=== PATIENT | male | born 1985 | race Caucasian/White ===

== ENCOUNTER 2019-05-22 18:04 | Inpatient (IN) ==
[2019-05-22] MEDS ORDERED: 0.9 % Sodium Chloride 1,000 ML IVC ONE (18:18)
[2019-05-22 18:51] LABS: Basophils # 0.1 K/mcL (0.0-0.2); Basophils % 0.7 %; Eosinophils # 0.2 K/mcL (0.0-0.6); Eosinophils % 2.8 %; Hematocrit 41.9 % (37.5-50.1); Hemoglobin 12.9 g/dL (12.9-16.9); Immature Granulocytes % 0.6 % (0-4); Lymphocytes # 1.4 K/mcL (0.6-4.6); Lymphocytes % 20.9 %; Mean Corpuscular HGB Conc 30.8 g/dL (31.6-35.5); Mean Corpuscular Hemoglobin 29.3 pg (28.0-33.3); Mean Platelet Volume 10.7 fL (9.4-12.4); Monocytes # 0.4 K/mcL (0.0-1.3); Monocytes % 5.7 %; Neutrophils # 4.7 K/mcL (1.6-8.9); Platelet Count 251 K/mcL (140-400); Red Blood Count 4.41 M/mcL (4.19-5.50); Red Cell Distribution Width 14.7 % (11.5-14.5); Segmented Neutrophils % 69.3 %; White Blood Count 6.8 K/mcL (4.3-11.1)
[2019-05-22 18:57] LABS: INR 1.1; Prothrombin Time 12.6 Seconds (9.4-12.1)
[2019-05-22 18:59] LABS: Activated Partial Thrombo Time 37.8 Seconds (26.0-36.0)
[2019-05-22 19:09] LABS: Alanine Aminotransferase 10 Units/L (7-52); Albumin 3.7 g/dL (3.5-5.7); Albumin/Globulin Ratio 0.9 (1.1-2.2); Alkaline Phosphatase 72 Units/L (34-104); Aspartate Amino Transferase 15 Units/L (13-39); BUN/Creatinine Ratio 51 (6-26); Bilirubin,Direct 0.1 mg/dL (0.0-0.2); Bilirubin,Indirect 0.2 mg/dL (0.0-1.0); Bilirubin,Total 0.3 mg/dL (0.3-1.0); Blood Urea Nitrogen 20 mg/dL (6-20); Calcium 9.6 mg/dL (8.6-10.3); Carbon Dioxide 34 mEq/L (23-29); Chloride 98 mEq/L (98-107); Globulin 4.2 g/dL (2.4-3.5); Glucose 95 mg/dL (70-105); Magnesium 2.1 mg/dL (1.6-2.6); Osmolality,Calculated 288 (280-300); Phosphorous 3.7 mg/dL (2.7-4.5); Sodium 138 mEq/L (136-145); Total Protein 7.9 g/dL (6.4-8.9); eGFR For African Americans > 60 (> 60); eGFR For Non-African Americans > 60 (> 60)
[2019-05-22 19:31] LABS: Bilirubin,Urine Negative (Negative); Blood,Urine Negative (Negative); Clarity,Urine Turbid (Clear); Color,Urine Yellow (Yellow); Glucose,Urine (UA) Normal (Normal); Ketones,Urine Negative (Negative); Leukocyte Esterase,Urine Large (Negative); Nitrite,Urine Negative (Negative); PH,Urine 7.5 pH Units (5.0-8.0); Protein,Urine Trace mg/dL (Neg-Trace); Specific Gravity,Urine 1.023 (1.010-1.025); Urobilinogen,Urine Normal (Normal)
[2019-05-22 19:33] LABS: Bacteria,Urine Many per hpf (None-Few); Squamous Epithelial Cell,Urine Many per lpf (None-Few); WBC,Urine TNTC per hpf (0-3)
[2019-05-22 19:50] LABS: Hyaline Casts,Urine Few per lpf (None-Few); Mucus,Urine Few (Few); RBC,Urine 0-3 per hpf (0-3)
[2019-05-22] MEDS ORDERED: Naloxone 0.4 MG/ML INJ IVP PRN (21:08)
[2019-05-22] MEDS ORDERED: Lactobacillus 1 EACH CAP.SPRINK PO PRN (22:13)
[2019-05-22] MEDS ORDERED: Acetaminophen 325 MG TABLET PO PRN (22:13)
[2019-05-22] MEDS: *HR* Heparin 5,000 UNIT/ML VIAL SQ SCH (23:43)
[2019-05-22] MEDS: Baclofen 10 MG TABLET PO SCH (23:43)
[2019-05-22] MEDS: Cholecalciferol (D-3) 1,000 UNIT (25MCG) TABLET PO SCH (23:43)
[2019-05-22] MEDS: Albuterol 2.5 MG/3 ML NEBULIZER IH SCH (23:53)
[2019-05-23] MEDS: Albuterol 2.5 MG/3 ML NEBULIZER IH SCH ×3 (03:40→19:37)
[2019-05-23 05:14] LABS: Hematocrit 40.4 % (37.5-50.1); Hemoglobin 12.3 g/dL (12.9-16.9); Mean Corpuscular HGB Conc 30.4 g/dL (31.6-35.5); Mean Corpuscular Hemoglobin 29.1 pg (28.0-33.3); Mean Corpuscular Volume 95.5 fL (83.0-100.0); Mean Platelet Volume 11.1 fL (9.4-12.4); Platelet Count 223 K/mcL (140-400); Red Blood Count 4.23 M/mcL (4.19-5.50); Red Cell Distribution Width 14.8 % (11.5-14.5)
[2019-05-23 05:20] LABS: INR 1.2; Prothrombin Time 13.2 Seconds (9.4-12.1)
[2019-05-23 05:35] LABS: BUN/Creatinine Ratio 41 (6-26); Blood Urea Nitrogen 19 mg/dL (6-20); Carbon Dioxide 31 mEq/L (23-29); Chloride 100 mEq/L (98-107); Glucose 92 mg/dL (70-105); Osmolality,Calculated 290 (280-300); Potassium 3.6 mEq/L (3.5-5.1); Sodium 139 mEq/L (136-145); eGFR For African Americans > 60 (> 60); eGFR For Non-African Americans > 60 (> 60)
[2019-05-23] MEDS: *HR* Heparin 5,000 UNIT/ML VIAL SQ SCH ×3 (06:09→23:09)
[2019-05-23] MEDS ORDERED: Melatonin 3 MG TABLET PO SCH (09:00)
[2019-05-23] MEDS ORDERED: ZINC SULFATE 220 MG PO SCH (09:00)
[2019-05-23] MEDS ORDERED: Melatonin 3 MG TABLET PO PRN (21:00)
[2019-05-23] MEDS: Baclofen 10 MG TABLET PO SCH ×2 (22:58→23:09)
[2019-05-23] MEDS: Furosemide 20 MG TABLET PO SCH (22:58)
[2019-05-23] MEDS: Prenatal Vit/FA 1 EACH TABLET PO SCH (22:59)
[2019-05-23] MEDS: diazePAM 10 MG TABLET PO SCH ×2 (22:59→23:09)
[2019-05-23] MEDS: Cholecalciferol (D-3) 1,000 UNIT (25MCG) TABLET PO SCH (23:00)
[2019-05-23] MEDS: Ascorbic Acid 500 MG TABLET PO SCH ×2 (23:00→23:08)
[2019-05-23] MEDS: BuPROPion XL (24 HR) 150 MG TABLET PO SCH (23:00)
[2019-05-24] MEDS: Albuterol 2.5 MG/3 ML NEBULIZER IH SCH ×8 (00:11→23:29)
[2019-05-24] MEDS: *HR* Heparin 5,000 UNIT/ML VIAL SQ SCH ×3 (06:06→20:40)
[2019-05-24 06:24] LABS: Hematocrit 41.1 % (37.5-50.1); Hemoglobin 13.2 g/dL (12.9-16.9); Mean Corpuscular HGB Conc 32.1 g/dL (31.6-35.5); Mean Corpuscular Hemoglobin 29.5 pg (28.0-33.3); Mean Corpuscular Volume 91.7 fL (83.0-100.0); Mean Platelet Volume 11.1 fL (9.4-12.4); Platelet Count 238 K/mcL (140-400); Red Blood Count 4.48 M/mcL (4.19-5.50); Red Cell Distribution Width 15.1 % (11.5-14.5); White Blood Count 8.7 K/mcL (4.3-11.1)
[2019-05-24] MEDS: diazePAM 10 MG TABLET PO SCH ×2 (10:15→20:40)
[2019-05-24] MEDS: Furosemide 20 MG TABLET PO SCH (10:15)
[2019-05-24] MEDS: BuPROPion XL (24 HR) 150 MG TABLET PO SCH (10:16)
[2019-05-24] MEDS: Ascorbic Acid 500 MG TABLET PO SCH ×2 (10:16→20:40)
[2019-05-24] MEDS: Prenatal Vit/FA 1 EACH TABLET PO SCH (10:16)
[2019-05-24] MEDS: Cholecalciferol (D-3) 1,000 UNIT (25MCG) TABLET PO SCH (10:16)
[2019-05-24] MEDS: Baclofen 10 MG TABLET PO SCH ×4 (10:16→20:41)
[2019-05-24] MEDS ORDERED: Ondansetron 4 MG/2 ML VIAL IVP ONE (15:30)
[2019-05-25] MEDS: Albuterol 2.5 MG/3 ML NEBULIZER IH SCH ×5 (03:48→19:45)
[2019-05-25] MEDS: *HR* Heparin 5,000 UNIT/ML VIAL SQ SCH ×3 (06:58→21:52)
[2019-05-25] MEDS: diazePAM 10 MG TABLET PO SCH ×2 (08:54→21:53)
[2019-05-25 08:59] LABS: Hematocrit 41.8 % (37.5-50.1); Hemoglobin 13.8 g/dL (12.9-16.9); Mean Corpuscular Hemoglobin 29.7 pg (28.0-33.3); Mean Corpuscular Volume 90.1 fL (83.0-100.0); Mean Platelet Volume 11.4 fL (9.4-12.4); Platelet Count 235 K/mcL (140-400); Red Blood Count 4.64 M/mcL (4.19-5.50); White Blood Count 7.6 K/mcL (4.3-11.1)
[2019-05-25] MEDS: Prenatal Vit/FA 1 EACH TABLET PO SCH (09:06)
[2019-05-25] MEDS: Baclofen 10 MG TABLET PO SCH ×4 (09:06→21:51)
[2019-05-25] MEDS: Furosemide 20 MG TABLET PO SCH (09:06)
[2019-05-25] MEDS: Ascorbic Acid 500 MG TABLET PO SCH ×2 (09:06→21:52)
[2019-05-25] MEDS: Cholecalciferol (D-3) 1,000 UNIT (25MCG) TABLET PO SCH (09:06)
[2019-05-25] MEDS: BuPROPion XL (24 HR) 150 MG TABLET PO SCH (09:06)
[2019-05-25] MEDS ORDERED: Gadolinium Contrast Agent (WT Based) IV PRN (12:35)
[2019-05-25] MEDS ORDERED: *HR* Propofol 200 MG/20 ML VIAL IVP ONE (14:13)
[2019-05-25] MEDS ORDERED: *HR* FentaNYL (PF) 100 MCG/2 ML VIAL ONE (14:13)
[2019-05-25] MEDS ORDERED: *HR* Midazolam HCl 2 MG/2 ML VIAL ONE (14:13)
[2019-05-25] MEDS ORDERED: Ondansetron 4 MG/2 ML VIAL IVP ONE (14:21)
[2019-05-25] MEDS ORDERED: *HR* Labetalol 20 MG/4 ML SYRINGE IVP PRN (14:21)
[2019-05-25] MEDS ORDERED: Morphine Sulfate 2 MG/ML SYRINGE IVP PRN (14:21)
[2019-05-25] MEDS ORDERED: CefOXitin 1,000 MG VIAL ONE (14:26)
[2019-05-25] MEDS ORDERED: Piperacillin/Tazobactam 3.375 GM in 0.9 % Sodium Chloride Mini Bag 100 ML IVPB ONE (14:27)
[2019-05-25] MEDS ORDERED: *HR* Rocuronium Bromide 50 MG/5 ML VIAL ONE ×2 (14:36→15:56)
[2019-05-25] MEDS ORDERED: Lidocaine -MPF 4% 5 ML AMPUL ONE (15:48)
[2019-05-25] MEDS ORDERED: *HR* HYDROMORPHONE 2 MG/ML VIAL ONE (15:48)
[2019-05-25] MEDS ORDERED: Ondansetron 4 MG/2 ML VIAL ONE (15:55)
[2019-05-25] MEDS ORDERED: Acetaminophen IV 1,000 MG/100 ML INFUS..BTL ONE (16:10)
[2019-05-25] MEDS ORDERED: Naloxone 0.4 MG/ML INJ IVP PRN (17:58)
[2019-05-25] MEDS ORDERED: Melatonin 3 MG TABLET PO PRN (17:58)
[2019-05-25] MEDS ORDERED: Acetaminophen 325 MG TABLET PO PRN (17:58)
[2019-05-25] MEDS ORDERED: *HR* OxyCODONE Oral Soln 5 MG/5 ML UD.LIQ GTUBE PRN (17:58)
[2019-05-26] MEDS: Albuterol 2.5 MG/3 ML NEBULIZER IH SCH ×7 (00:10→23:47)
[2019-05-26] MEDS: *HR* Heparin 5,000 UNIT/ML VIAL SQ SCH ×3 (05:57→20:53)
[2019-05-26 06:40] LABS: Hematocrit 44.1 % (37.5-50.1); Mean Corpuscular HGB Conc 31.7 g/dL (31.6-35.5); Mean Corpuscular Volume 91.5 fL (83.0-100.0); Mean Platelet Volume 11.6 fL (9.4-12.4); Platelet Count 222 K/mcL (140-400); Red Blood Count 4.82 M/mcL (4.19-5.50); Red Cell Distribution Width 15.4 % (11.5-14.5); White Blood Count 9.5 K/mcL (4.3-11.1)
[2019-05-26 07:44] LABS: BUN/Creatinine Ratio 21 (6-26); Blood Urea Nitrogen 10 mg/dL (6-20); Calcium 8.8 mg/dL (8.6-10.3); Carbon Dioxide 28 mEq/L (23-29); Chloride 98 mEq/L (98-107); Glucose 97 mg/dL (70-105); Osmolality,Calculated 281 (280-300); Potassium 3.8 mEq/L (3.5-5.1); Sodium 136 mEq/L (136-145); eGFR For African Americans > 60 (> 60); eGFR For Non-African Americans > 60 (> 60)
[2019-05-26] MEDS ORDERED: 0.9 % Sodium Chloride 1,000 ML IVC ONE (07:46)
[2019-05-26] MEDS: Furosemide 20 MG TABLET PO SCH (08:27)
[2019-05-26] MEDS: BuPROPion XL (24 HR) 150 MG TABLET PO SCH (08:27)
[2019-05-26] MEDS: Baclofen 10 MG TABLET PO SCH ×4 (08:27→20:53)
[2019-05-26] MEDS: Prenatal Vit/FA 1 EACH TABLET PO SCH (08:27)
[2019-05-26] MEDS: Ascorbic Acid 500 MG TABLET PO SCH ×2 (08:28→20:53)
[2019-05-26] MEDS: Lactobacillus 1 EACH CAP.SPRINK PO SCH (08:28)
[2019-05-26] MEDS: Cholecalciferol (D-3) 1,000 UNIT (25MCG) TABLET PO SCH (08:28)
[2019-05-26] MEDS: diazePAM 10 MG TABLET PO SCH ×2 (08:29→20:53)
[2019-05-26] MEDS ORDERED: Ondansetron 4 MG/2 ML VIAL IVP PRN (12:00)
[2019-05-27] MEDS: Albuterol 2.5 MG/3 ML NEBULIZER IH SCH ×5 (03:56→20:20)
[2019-05-27 05:10] LABS: Hematocrit 41.1 % (37.5-50.1); Hemoglobin 13.1 g/dL (12.9-16.9); Mean Corpuscular HGB Conc 31.9 g/dL (31.6-35.5); Mean Corpuscular Hemoglobin 29.2 pg (28.0-33.3); Mean Corpuscular Volume 91.5 fL (83.0-100.0); Mean Platelet Volume 11.9 fL (9.4-12.4); Platelet Count 205 K/mcL (140-400); Red Blood Count 4.49 M/mcL (4.19-5.50); Red Cell Distribution Width 15.1 % (11.5-14.5); White Blood Count 6.9 K/mcL (4.3-11.1)
[2019-05-27 05:26] LABS: BUN/Creatinine Ratio 17 (6-26); Blood Urea Nitrogen 7 mg/dL (6-20); Calcium 8.9 mg/dL (8.6-10.3); Carbon Dioxide 26 mEq/L (23-29); Chloride 95 mEq/L (98-107); Glucose 83 mg/dL (70-105); Osmolality,Calculated 277 (280-300); Potassium 3.4 mEq/L (3.5-5.1); Sodium 135 mEq/L (136-145); eGFR For African Americans > 60 (> 60); eGFR For Non-African Americans > 60 (> 60)
[2019-05-27] MEDS: *HR* Heparin 5,000 UNIT/ML VIAL SQ SCH ×3 (05:44→21:43)
[2019-05-27] MEDS: Prenatal Vit/FA 1 EACH TABLET PO SCH (10:05)
[2019-05-27] MEDS: Cholecalciferol (D-3) 1,000 UNIT (25MCG) TABLET PO SCH (10:05)
[2019-05-27] MEDS: Baclofen 10 MG TABLET PO SCH ×4 (10:05→21:43)
[2019-05-27] MEDS: Lactobacillus 1 EACH CAP.SPRINK PO SCH (10:06)
[2019-05-27] MEDS: Furosemide 20 MG TABLET PO SCH (10:06)
[2019-05-27] MEDS: Ascorbic Acid 500 MG TABLET PO SCH ×2 (10:06→21:42)
[2019-05-27] MEDS: diazePAM 10 MG TABLET PO SCH ×2 (10:06→21:42)
[2019-05-27] MEDS: BuPROPion XL (24 HR) 150 MG TABLET PO SCH (10:06)
[2019-05-28] MEDS: Albuterol 2.5 MG/3 ML NEBULIZER IH SCH ×7 (00:45→20:17)
[2019-05-28 03:56] LABS: Hematocrit 40.2 % (37.5-50.1); Hemoglobin 12.1 g/dL (12.9-16.9); Mean Corpuscular HGB Conc 30.1 g/dL (31.6-35.5); Mean Corpuscular Hemoglobin 28.6 pg (28.0-33.3); Mean Platelet Volume 11.1 fL (9.4-12.4); Platelet Count 176 K/mcL (140-400); Red Blood Count 4.23 M/mcL (4.19-5.50); Red Cell Distribution Width 14.9 % (11.5-14.5); White Blood Count 4.9 K/mcL (4.3-11.1)
[2019-05-28 04:14] LABS: BUN/Creatinine Ratio 12 (6-26); Blood Urea Nitrogen 5 mg/dL (6-20); Calcium 8.8 mg/dL (8.6-10.3); Carbon Dioxide 28 mEq/L (23-29); Chloride 97 mEq/L (98-107); Glucose 82 mg/dL (70-105); Osmolality,Calculated 276 (280-300); Potassium 3.6 mEq/L (3.5-5.1); Sodium 135 mEq/L (136-145); eGFR For African Americans > 60 (> 60); eGFR For Non-African Americans > 60 (> 60)
[2019-05-28] MEDS: *HR* Heparin 5,000 UNIT/ML VIAL SQ SCH ×3 (05:35→21:04)
[2019-05-28] MEDS: diazePAM 10 MG TABLET PO SCH ×2 (09:59→21:04)
[2019-05-28] MEDS: Baclofen 10 MG TABLET PO SCH ×4 (09:59→21:03)
[2019-05-28] MEDS: Cholecalciferol (D-3) 1,000 UNIT (25MCG) TABLET PO SCH (09:59)
[2019-05-28] MEDS: Ascorbic Acid 500 MG TABLET PO SCH ×2 (09:59→21:04)
[2019-05-28] MEDS: BuPROPion XL (24 HR) 150 MG TABLET PO SCH (09:59)
[2019-05-28] MEDS: Prenatal Vit/FA 1 EACH TABLET PO SCH (10:00)
[2019-05-28] MEDS: Lactobacillus 1 EACH CAP.SPRINK PO SCH (10:00)
[2019-05-28] MEDS: Furosemide 20 MG TABLET PO SCH (10:00)
[2019-05-28] MEDS ORDERED: Lidocaine -MPF 1% 5 ML AMPUL INFILT ONE (10:35)
[2019-05-28] MEDS: Cefepime HCl 2,000 MG in Water for inj. (sterile) 20 ML IVP SCH (12:41)
[2019-05-28] MEDS ORDERED: Heparin 1,000 UNITS/500 mL 500 ML ONE (13:30)
[2019-05-28] MEDS ORDERED: *HR* FentaNYL (PF) 100 MCG/2 ML VIAL IVP ONE (14:26)
[2019-05-28] MEDS ORDERED: *HR* FentaNYL (PF) 100 MCG/2 ML VIAL ONE (14:29)
[2019-05-28] MEDS: metroNIDAZOLE 500 MG TABLET PO SCH ×2 (15:29→21:02)
[2019-05-29] MEDS: Albuterol 2.5 MG/3 ML NEBULIZER IH SCH ×5 (00:03→16:31)
[2019-05-29] MEDS: Cefepime HCl 2,000 MG in Water for inj. (sterile) 20 ML IVP SCH ×2 (00:32→11:48)
[2019-05-29 04:15] LABS: BUN/Creatinine Ratio 20 (6-26); Blood Urea Nitrogen 7 mg/dL (6-20); Calcium 8.2 mg/dL (8.6-10.3); Carbon Dioxide 29 mEq/L (23-29); Chloride 100 mEq/L (98-107); Glucose 93 mg/dL (70-105); Osmolality,Calculated 284 (280-300); Potassium 3.2 mEq/L (3.5-5.1); Sodium 138 mEq/L (136-145); eGFR For African Americans > 60 (> 60); eGFR For Non-African Americans > 60 (> 60)
[2019-05-29] MEDS: *HR* Heparin 5,000 UNIT/ML VIAL SQ SCH ×2 (05:53→14:03)
[2019-05-29] MEDS: Baclofen 10 MG TABLET PO SCH ×2 (09:48→14:02)
[2019-05-29] MEDS: Lactobacillus 1 EACH CAP.SPRINK PO SCH (09:49)
[2019-05-29] MEDS: Furosemide 20 MG TABLET PO SCH (09:49)
[2019-05-29] MEDS: metroNIDAZOLE 500 MG TABLET PO SCH ×2 (09:49→15:31)
[2019-05-29] MEDS: Cholecalciferol (D-3) 1,000 UNIT (25MCG) TABLET PO SCH (09:49)
[2019-05-29] MEDS: BuPROPion XL (24 HR) 150 MG TABLET PO SCH (09:50)
[2019-05-29] MEDS: Ascorbic Acid 500 MG TABLET PO SCH (09:50)
[2019-05-29] MEDS: Prenatal Vit/FA 1 EACH TABLET PO SCH (09:51)
[2019-05-29] MEDS: diazePAM 10 MG TABLET PO SCH (09:51)
[2019-05-29 12:22] VITALS: BP 96/60
[2019-05-29] MEDS ORDERED: Aminoglycoside Consult 1 EACH MC ONE (16:46)
== END 2019-05-29 16:47 | DRG 981 ==
LOC: 3NENU 18:04 → EMEROOARM 18:04 → SUATTDRO 20:55 → 3NENU 21:20 → 2NENU 23:23 → SUATTDRO 05-24 12:47 → MERGE 05-24 12:47
PROVIDERS: ADMIT Internal Medicine; ATTEND Internal Medicine

== ENCOUNTER 2019-06-04 13:59 | Inpatient (IN) ==
[2019-06-04] MEDS ORDERED: Ondansetron ODT 4 MG TAB.RAPDIS SL PRN (17:14)
[2019-06-04] MEDS ORDERED: Naloxone 0.4 MG/ML INJ IVP PRN (17:14)
[2019-06-04] MEDS ORDERED: Ondansetron 4 MG/2 ML VIAL IVP PRN (17:14)
[2019-06-04] MEDS ORDERED: *HR* OxyCODONE Immed Rel 5 MG TABLET PO PRN (17:56)
[2019-06-04] MEDS ORDERED: Isovue-370 500 ML BOTTLE IVP ONE (17:57)
[2019-06-04 17:59] LABS: Basophils # 0.1 K/mcL (0.0-0.2); Basophils % 0.6 %; Eosinophils # 0.1 K/mcL (0.0-0.6); Eosinophils % 1.1 %; Hematocrit 34.6 % (37.5-50.1); Hemoglobin 10.8 g/dL (12.9-16.9); Immature Granulocytes % 0.4 % (0-4); Lymphocytes # 1.2 K/mcL (0.6-4.6); Lymphocytes % 15.2 %; Mean Corpuscular HGB Conc 31.2 g/dL (31.6-35.5); Mean Corpuscular Hemoglobin 29.5 pg (28.0-33.3); Mean Corpuscular Volume 94.5 fL (83.0-100.0); Mean Platelet Volume 11.3 fL (9.4-12.4); Monocytes # 0.7 K/mcL (0.0-1.3); Monocytes % 8.2 %; Neutrophils # 6.1 K/mcL (1.6-8.9); Platelet Count 238 K/mcL (140-400); Red Blood Count 3.66 M/mcL (4.19-5.50); Segmented Neutrophils % 74.5 %; White Blood Count 8.2 K/mcL (4.3-11.1)
[2019-06-04] MEDS ORDERED: Furosemide 40 MG/4 ML VIAL IVP ONE (17:59)
[2019-06-04] MEDS ORDERED: Furosemide 20 MG/2 ML VIAL IVP ONE ×2 (17:59→18:52)
[2019-06-04] MEDS ORDERED: Ipratropium/Albuterol Neb 3 ML IH PRN (17:59)
[2019-06-04 18:09] LABS: INR 1.7; Prothrombin Time 18.8 Seconds (9.4-12.1)
[2019-06-04 18:22] LABS: Alanine Aminotransferase 8 Units/L (7-52); Albumin 2.9 g/dL (3.5-5.7); Albumin/Globulin Ratio 0.8 (1.1-2.2); Alkaline Phosphatase 88 Units/L (34-104); Aspartate Amino Transferase 10 Units/L (13-39); BUN/Creatinine Ratio 35 (6-26); Bilirubin,Total 0.3 mg/dL (0.3-1.0); Blood Urea Nitrogen 11 mg/dL (6-20); Calcium 8.1 mg/dL (8.6-10.3); Carbon Dioxide 28 mEq/L (23-29); Chloride 106 mEq/L (98-107); Globulin 3.7 g/dL (2.4-3.5); Glucose 87 mg/dL (70-105); Osmolality,Calculated 293 (280-300); Potassium 3.5 mEq/L (3.5-5.1); Sodium 142 mEq/L (136-145); Total Protein 6.6 g/dL (6.4-8.9); eGFR For African Americans > 60 (> 60); eGFR For Non-African Americans > 60 (> 60)
[2019-06-04] MEDS ORDERED: Docusate Oral Soln 100 MG/10 ML UDC GTUBE SCH (21:00)
[2019-06-04] MEDS ORDERED: Vancomycin 1 EACH in 0.9 % Sodium Chloride 250 ML IVPB SCH (21:45)
[2019-06-04] MEDS: Docusate Oral Soln 100 MG/10 ML UDC GTUBE SCH (21:58)
[2019-06-04] MEDS: Melatonin 3 MG TABLET GTUBE SCH (21:59)
[2019-06-04] MEDS: Baclofen 10 MG TABLET GTUBE SCH (21:59)
[2019-06-04] MEDS: diazePAM 10 MG TABLET PO SCH (22:01)
[2019-06-04] MEDS: Metoclopramide 10 MG/10 ML UD.LIQ GTUBE SCH (22:04)
[2019-06-04] MEDS: *HR* Heparin 5,000 UNIT/ML VIAL SQ SCH (22:04)
[2019-06-05] MEDS: Cefepime HCl 2,000 MG in Water for inj. (sterile) 20 ML IVP SCH ×2 (00:50→09:55)
[2019-06-05 04:59] LABS: Hematocrit 33.1 % (37.5-50.1); Hemoglobin 9.8 g/dL (12.9-16.9); Mean Corpuscular HGB Conc 29.6 g/dL (31.6-35.5); Mean Corpuscular Hemoglobin 29.3 pg (28.0-33.3); Mean Corpuscular Volume 99.1 fL (83.0-100.0); Mean Platelet Volume 10.8 fL (9.4-12.4); Platelet Count 202 K/mcL (140-400); Red Blood Count 3.34 M/mcL (4.19-5.50); Red Cell Distribution Width 16.1 % (11.5-14.5); White Blood Count 7.9 K/mcL (4.3-11.1)
[2019-06-05 05:20] LABS: BUN/Creatinine Ratio 33 (6-26); Blood Urea Nitrogen 9 mg/dL (6-20); Calcium 8.4 mg/dL (8.6-10.3); Carbon Dioxide 28 mEq/L (23-29); Chloride 104 mEq/L (98-107); Glucose 84 mg/dL (70-105); Magnesium 1.8 mg/dL (1.6-2.6); Osmolality,Calculated 290 (280-300); Potassium 3.4 mEq/L (3.5-5.1); Sodium 141 mEq/L (136-145); eGFR For African Americans > 60 (> 60); eGFR For Non-African Americans > 60 (> 60)
[2019-06-05] MEDS: *HR* Heparin 5,000 UNIT/ML VIAL SQ SCH ×2 (05:36→17:51)
[2019-06-05] MEDS ORDERED: DIMETHICONE TP SCH (09:00)
[2019-06-05] MEDS ORDERED: [UNRECOGNIZED DRUG - OTHER] TP SCH (09:00)
[2019-06-05] MEDS ORDERED: ZINC OXIDE TP SCH (09:00)
[2019-06-05] MEDS: diazePAM 10 MG TABLET PO SCH ×3 (09:55→21:13)
[2019-06-05] MEDS: Docusate Oral Soln 100 MG/10 ML UDC GTUBE SCH ×2 (09:55→21:15)
[2019-06-05] MEDS: Baclofen 10 MG TABLET GTUBE SCH ×4 (09:55→21:13)
[2019-06-05] MEDS: BuPROPion XL (24 HR) 150 MG TABLET PO SCH (09:55)
[2019-06-05] MEDS: Ferrous Sulfate Oral Soln 300 MG/5 ML UDC GTUBE SCH (09:55)
[2019-06-05] MEDS: Metoclopramide 10 MG/10 ML UD.LIQ GTUBE SCH ×4 (09:59→21:14)
[2019-06-05] MEDS ORDERED: E-Z-PAQUE (BARIUM SULF) SUSP 1 BOTTLE PO ONE (12:53)
[2019-06-05] MEDS ORDERED: E-Z-HD (BARIUM SULF) SUSPENSION PO ONE (12:53)
[2019-06-05] MEDS: levoFLOXacin 750 MG/150 ML 750 MG/150 ML BAG IVPB SCH (13:45)
[2019-06-05] MEDS ORDERED: MetroNIDAZOLE 500 MG/100 ML 500 MG/100 ML BAG IVPB SCH (16:00)
[2019-06-05] MEDS: Piperacillin/Tazobactam 3.375 GM in 0.9 % Sodium Chloride Mini Bag 100 ML IVPB SCH (16:15)
[2019-06-05] MEDS: Melatonin 3 MG TABLET GTUBE SCH (21:13)
[2019-06-06] MEDS: Piperacillin/Tazobactam 3.375 GM in 0.9 % Sodium Chloride Mini Bag 100 ML IVPB SCH ×3 (01:22→16:48)
[2019-06-06] MEDS: *HR* Heparin 5,000 UNIT/ML VIAL SQ SCH ×2 (05:57→18:38)
[2019-06-06] MEDS: levoFLOXacin 750 MG/150 ML 750 MG/150 ML BAG IVPB SCH (09:45)
[2019-06-06] MEDS: Metoclopramide 10 MG/10 ML UD.LIQ GTUBE SCH ×4 (09:45→21:27)
[2019-06-06] MEDS: Ferrous Sulfate Oral Soln 300 MG/5 ML UDC GTUBE SCH (09:46)
[2019-06-06] MEDS: BuPROPion XL (24 HR) 150 MG TABLET PO SCH (09:47)
[2019-06-06] MEDS: Docusate Oral Soln 100 MG/10 ML UDC GTUBE SCH ×2 (09:47→21:27)
[2019-06-06] MEDS: Baclofen 10 MG TABLET GTUBE SCH ×4 (09:47→21:28)
[2019-06-06] MEDS: diazePAM 10 MG TABLET PO SCH ×3 (09:47→21:29)
[2019-06-06 11:24] LABS: BUN/Creatinine Ratio 21 (6-26); Blood Urea Nitrogen 6 mg/dL (6-20); Calcium 8.4 mg/dL (8.6-10.3); Carbon Dioxide 33 mEq/L (23-29); Chloride 100 mEq/L (98-107); Glucose 88 mg/dL (70-105); Osmolality,Calculated 285 (280-300); Potassium 3.5 mEq/L (3.5-5.1); Sodium 139 mEq/L (136-145); Vancomycin,Trough 11 mcg/mL (5-10); eGFR For African Americans > 60 (> 60); eGFR For Non-African Americans > 60 (> 60)
[2019-06-06 11:28] LABS: Hematocrit 32.1 % (37.5-50.1); Mean Corpuscular HGB Conc 31.2 g/dL (31.6-35.5); Mean Corpuscular Hemoglobin 29.4 pg (28.0-33.3); Mean Corpuscular Volume 94.4 fL (83.0-100.0); Mean Platelet Volume 10.5 fL (9.4-12.4); Platelet Count 216 K/mcL (140-400); Red Cell Distribution Width 15.7 % (11.5-14.5); White Blood Count 6.7 K/mcL (4.3-11.1)
[2019-06-06] MEDS ORDERED: Furosemide 20 MG/2 ML VIAL IVP ONE (13:45)
[2019-06-06] MEDS: Melatonin 3 MG TABLET GTUBE SCH (21:29)
[2019-06-07] MEDS: Piperacillin/Tazobactam 3.375 GM in 0.9 % Sodium Chloride Mini Bag 100 ML IVPB SCH ×3 (00:17→15:24)
[2019-06-07] MEDS: *HR* Heparin 5,000 UNIT/ML VIAL SQ SCH ×2 (05:03→18:05)
[2019-06-07 05:24] LABS: Hematocrit 35.1 % (37.5-50.1); Hemoglobin 10.5 g/dL (12.9-16.9); Mean Corpuscular HGB Conc 29.9 g/dL (31.6-35.5); Mean Corpuscular Hemoglobin 29.4 pg (28.0-33.3); Mean Corpuscular Volume 98.3 fL (83.0-100.0); Mean Platelet Volume 10.8 fL (9.4-12.4); Platelet Count 226 K/mcL (140-400); Red Blood Count 3.57 M/mcL (4.19-5.50); Red Cell Distribution Width 15.6 % (11.5-14.5); White Blood Count 6.5 K/mcL (4.3-11.1)
[2019-06-07 05:49] LABS: BUN/Creatinine Ratio 13 (6-26); Blood Urea Nitrogen 7 mg/dL (6-20); Calcium 9.2 mg/dL (8.6-10.3); Carbon Dioxide 33 mEq/L (23-29); Chloride 97 mEq/L (98-107); Glucose 150 mg/dL (70-105); Osmolality,Calculated 287 (280-300); Potassium 3.1 mEq/L (3.5-5.1); Sodium 138 mEq/L (136-145); eGFR For African Americans > 60 (> 60); eGFR For Non-African Americans > 60 (> 60)
[2019-06-07] MEDS: Docusate Oral Soln 100 MG/10 ML UDC GTUBE SCH ×2 (09:38→21:58)
[2019-06-07] MEDS: Metoclopramide 10 MG/10 ML UD.LIQ GTUBE SCH ×4 (09:38→21:58)
[2019-06-07] MEDS: Ferrous Sulfate Oral Soln 300 MG/5 ML UDC GTUBE SCH (09:39)
[2019-06-07] MEDS: BuPROPion XL (24 HR) 150 MG TABLET PO SCH (09:39)
[2019-06-07] MEDS: Baclofen 10 MG TABLET GTUBE SCH ×4 (09:39→21:58)
[2019-06-07] MEDS: diazePAM 10 MG TABLET PO SCH ×3 (09:40→21:58)
[2019-06-07] MEDS: levoFLOXacin 750 MG/150 ML 750 MG/150 ML BAG IVPB SCH (09:41)
[2019-06-07] MEDS: Melatonin 3 MG TABLET GTUBE SCH (21:58)
[2019-06-08] MEDS: Levalbuterol Neb 1.25 MG/3 ML IH SCH ×5 (01:30→22:24)
[2019-06-08] MEDS: Piperacillin/Tazobactam 3.375 GM in 0.9 % Sodium Chloride Mini Bag 100 ML IVPB SCH ×3 (02:11→16:55)
[2019-06-08 04:51] LABS: Basophils % 0.5 %; Eosinophils # 0.3 K/mcL (0.0-0.6); Eosinophils % 4.3 %; Hematocrit 32.4 % (37.5-50.1); Hemoglobin 9.6 g/dL (12.9-16.9); Immature Granulocytes % 2.2 % (0-4); Lymphocytes # 1.1 K/mcL (0.6-4.6); Lymphocytes % 18.6 %; Mean Corpuscular HGB Conc 29.6 g/dL (31.6-35.5); Mean Corpuscular Hemoglobin 29.5 pg (28.0-33.3); Mean Corpuscular Volume 99.7 fL (83.0-100.0); Monocytes # 0.4 K/mcL (0.0-1.3); Monocytes % 7.5 %; Neutrophils # 3.9 K/mcL (1.6-8.9); Platelet Count 247 K/mcL (140-400); Red Blood Count 3.25 M/mcL (4.19-5.50); Red Cell Distribution Width 15.6 % (11.5-14.5); Segmented Neutrophils % 66.9 %; White Blood Count 5.9 K/mcL (4.3-11.1)
[2019-06-08 05:05] LABS: BUN/Creatinine Ratio 22 (6-26); Blood Urea Nitrogen 18 mg/dL (6-20); Carbon Dioxide 34 mEq/L (23-29); Chloride 99 mEq/L (98-107); Glucose 143 mg/dL (70-105); Osmolality,Calculated 290 (280-300); Potassium 3.7 mEq/L (3.5-5.1); Sodium 138 mEq/L (136-145); eGFR For African Americans > 60 (> 60); eGFR For Non-African Americans > 60 (> 60)
[2019-06-08] MEDS: *HR* Heparin 5,000 UNIT/ML VIAL SQ SCH ×2 (05:12→16:56)
[2019-06-08] MEDS: diazePAM 10 MG TABLET PO SCH ×3 (09:21→21:56)
[2019-06-08] MEDS: Ferrous Sulfate Oral Soln 300 MG/5 ML UDC GTUBE SCH (09:22)
[2019-06-08] MEDS: Baclofen 10 MG TABLET GTUBE SCH ×3 (09:22→16:55)
[2019-06-08] MEDS: Docusate Oral Soln 100 MG/10 ML UDC GTUBE SCH ×2 (09:22→21:54)
[2019-06-08] MEDS: Metoclopramide 10 MG/10 ML UD.LIQ GTUBE SCH ×4 (09:22→21:54)
[2019-06-08] MEDS: BuPROPion XL (24 HR) 150 MG TABLET PO SCH (09:23)
[2019-06-08] MEDS: levoFLOXacin 750 MG/150 ML 750 MG/150 ML BAG IVPB SCH (11:21)
[2019-06-08 16:11] LABS: Sodium, Urine 82.4 mEq/L
[2019-06-08] MEDS: Melatonin 3 MG TABLET GTUBE SCH (21:56)
[2019-06-09] MEDS: Baclofen 10 MG TABLET GTUBE SCH ×5 (00:07→22:00)
[2019-06-09] MEDS: Piperacillin/Tazobactam 3.375 GM in 0.9 % Sodium Chloride Mini Bag 100 ML IVPB SCH ×3 (00:38→16:50)
[2019-06-09] MEDS: *HR* Heparin 5,000 UNIT/ML VIAL SQ SCH ×2 (03:01→17:01)
[2019-06-09] MEDS: Levalbuterol Neb 1.25 MG/3 ML IH SCH ×4 (03:55→22:25)
[2019-06-09 04:04] LABS: Basophils % 0.7 %; Eosinophils # 0.2 K/mcL (0.0-0.6); Eosinophils % 3.9 %; Hematocrit 32.8 % (37.5-50.1); Hemoglobin 9.7 g/dL (12.9-16.9); Immature Granulocytes % 2.7 % (0-4); Lymphocytes # 1.2 K/mcL (0.6-4.6); Lymphocytes % 19.9 %; Mean Corpuscular HGB Conc 29.6 g/dL (31.6-35.5); Mean Corpuscular Volume 98.2 fL (83.0-100.0); Mean Platelet Volume 11.2 fL (9.4-12.4); Monocytes # 0.5 K/mcL (0.0-1.3); Monocytes % 8.8 %; Neutrophils # 3.8 K/mcL (1.6-8.9); Platelet Count 272 K/mcL (140-400); Red Blood Count 3.34 M/mcL (4.19-5.50); White Blood Count 5.9 K/mcL (4.3-11.1)
[2019-06-09 04:22] LABS: BUN/Creatinine Ratio 20 (6-26); Blood Urea Nitrogen 16 mg/dL (6-20); Calcium 8.8 mg/dL (8.6-10.3); Carbon Dioxide 32 mEq/L (23-29); Chloride 100 mEq/L (98-107); Glucose 129 mg/dL (70-105); Osmolality,Calculated 293 (280-300); Potassium 3.6 mEq/L (3.5-5.1); Sodium 140 mEq/L (136-145); eGFR For African Americans > 60 (> 60); eGFR For Non-African Americans > 60 (> 60)
[2019-06-09] MEDS: Vancomycin 500 MG in 0.9 % Sodium Chloride Mini Bag 100 ML IVPB SCH ×2 (05:02→14:37)
[2019-06-09] MEDS: Metoclopramide 10 MG/10 ML UD.LIQ GTUBE SCH ×4 (08:58→22:00)
[2019-06-09] MEDS: Docusate Oral Soln 100 MG/10 ML UDC GTUBE SCH ×2 (09:09→22:00)
[2019-06-09] MEDS: Ferrous Sulfate Oral Soln 300 MG/5 ML UDC GTUBE SCH (09:10)
[2019-06-09] MEDS: BuPROPion XL (24 HR) 150 MG TABLET PO SCH (09:11)
[2019-06-09] MEDS: diazePAM 10 MG TABLET PO SCH ×3 (09:11→22:00)
[2019-06-09] MEDS: Melatonin 3 MG TABLET GTUBE SCH (22:01)
[2019-06-10] MEDS: Piperacillin/Tazobactam 3.375 GM in 0.9 % Sodium Chloride Mini Bag 100 ML IVPB SCH ×2 (00:50→09:13)
[2019-06-10] MEDS: Vancomycin 500 MG in 0.9 % Sodium Chloride Mini Bag 100 ML IVPB SCH (00:51)
[2019-06-10] MEDS: Levalbuterol Neb 1.25 MG/3 ML IH SCH ×3 (03:50→15:49)
[2019-06-10] MEDS: *HR* Heparin 5,000 UNIT/ML VIAL SQ SCH (05:48)
[2019-06-10 06:44] LABS: BUN/Creatinine Ratio 20 (6-26); Blood Urea Nitrogen 18 mg/dL (6-20); Calcium 8.8 mg/dL (8.6-10.3); Carbon Dioxide 34 mEq/L (23-29); Chloride 100 mEq/L (98-107); Glucose 135 mg/dL (70-105); Osmolality,Calculated 296 (280-300); Potassium 3.9 mEq/L (3.5-5.1); Sodium 141 mEq/L (136-145); eGFR For African Americans > 60 (> 60); eGFR For Non-African Americans > 60 (> 60)
[2019-06-10] MEDS ORDERED: Ascorbic Acid 500 MG TABLET GTUBE SCH (09:00)
[2019-06-10] MEDS ORDERED: BuPROPion XL (24 HR) 150 MG TABLET PO SCH (09:00)
[2019-06-10] MEDS: Metoclopramide 10 MG/10 ML UD.LIQ GTUBE SCH ×2 (09:11→12:51)
[2019-06-10] MEDS: Baclofen 10 MG TABLET GTUBE SCH ×2 (09:12→12:51)
[2019-06-10] MEDS: Ferrous Sulfate Oral Soln 300 MG/5 ML UDC GTUBE SCH (09:12)
[2019-06-10] MEDS: Docusate Oral Soln 100 MG/10 ML UDC GTUBE SCH (09:12)
[2019-06-10] MEDS: diazePAM 10 MG TABLET PO SCH (09:12)
[2019-06-10 11:44] VITALS: BP 120/83
[2019-06-10] MEDS ORDERED: Aminoglycoside Consult 1 EACH MC ONE (16:34)
== END 2019-06-10 16:35 | DRG 871 ==
LOC: 2NNU → MERGE 17:14 → SUATTDRO 17:14
PROVIDERS: ADMIT Student in an Organized Health Care Education/Training Program; ATTEND Internal Medicine

== ENCOUNTER 2019-07-15 14:48 | Inpatient (IN) ==
[2019-07-15] MEDS ORDERED: Ondansetron 4 MG/2 ML VIAL IVP PRN (18:40)
[2019-07-15] MEDS ORDERED: Naloxone 0.4 MG/ML INJ IVP PRN (18:40)
[2019-07-15] MEDS ORDERED: diazePAM 10 MG TABLET PO PRN (18:44)
[2019-07-15] MEDS ORDERED: Ipratropium/Albuterol Neb 3 ML IH PRN (18:44)
[2019-07-15] MEDS ORDERED: Melatonin 3 MG TABLET PO PRN (18:44)
[2019-07-15] MEDS ORDERED: Vancomycin (wt based) 1,000 MG VIAL IVPB SCH (19:00)
[2019-07-15 19:21] LABS: ABG Base Excess 10 mEq/L (-2 to 3); ABG HCO3 38 mEq/L (21-27); ABG Oxygen Saturation 77 % (95-98); ABG PCO2 67 mmHg (35-45); ABG PH 7.36 pH Units (7.32-7.45); ABG PO2 46 mmHg (85-104); ABG TCO2 40 mEq/L (20-26)
[2019-07-15 19:24] LABS: ABG Base Excess 10 mEq/L (-2 to 3); ABG HCO3 38 mEq/L (21-27); ABG Oxygen Saturation 88 % (95-98); ABG PCO2 69 mmHg (35-45); ABG PH 7.35 pH Units (7.32-7.45); ABG PO2 60 mmHg (85-104); ABG TCO2 40 mEq/L (20-26)
[2019-07-15] MEDS ORDERED: Isovue-370 500 ML BOTTLE IVP ONE (19:43)
[2019-07-15] MEDS: metroNIDAZOLE 500 MG TABLET PO SCH (21:56)
[2019-07-15] MEDS: Baclofen 10 MG TABLET PO SCH (21:56)
[2019-07-16] MEDS: Piperacillin/Tazobactam 3.375 GM in 0.9 % Sodium Chloride Mini Bag 100 ML IVPB SCH ×3 (01:19→18:47)
[2019-07-16 05:08] LABS: Hematocrit 31.7 % (37.5-50.1); Hemoglobin 9.4 g/dL (12.9-16.9); Mean Corpuscular HGB Conc 29.7 g/dL (31.6-35.5); Mean Corpuscular Hemoglobin 28.8 pg (28.0-33.3); Mean Corpuscular Volume 97.2 fL (83.0-100.0); Mean Platelet Volume 11.4 fL (9.4-12.4); Platelet Count 280 K/mcL (140-400); Red Blood Count 3.26 M/mcL (4.19-5.50); Red Cell Distribution Width 15.8 % (11.5-14.5); White Blood Count 5.4 K/mcL (4.3-11.1)
[2019-07-16 05:27] LABS: BUN/Creatinine Ratio 33 (6-26); Blood Urea Nitrogen 18 mg/dL (6-20); Calcium 8.9 mg/dL (8.6-10.3); Carbon Dioxide 35 mEq/L (23-29); Chloride 103 mEq/L (98-107); Glucose 109 mg/dL (70-105); Magnesium 2.2 mg/dL (1.6-2.6); Osmolality,Calculated 298 (280-300); Potassium 3.7 mEq/L (3.5-5.1); Sodium 143 mEq/L (136-145); eGFR For African Americans > 60 (> 60); eGFR For Non-African Americans > 60 (> 60)
[2019-07-16] MEDS: metroNIDAZOLE 500 MG TABLET PO SCH ×3 (10:08→22:31)
[2019-07-16] MEDS: Baclofen 10 MG TABLET PO SCH ×4 (10:08→22:28)
[2019-07-16] MEDS ORDERED: Propofol 500 MG/50 ML INFUS..BTL ONE (11:19)
[2019-07-16] MEDS ORDERED: Lidocaine -MPF 2% 2 ML VIAL ONE (11:43)
[2019-07-16] MEDS ORDERED: E-Z-PAQUE (BARIUM SULF) SUSP 1 BOTTLE PO ONE (14:11)
[2019-07-16] MEDS ORDERED: E-Z-HD (BARIUM SULF) SUSPENSION PO ONE (14:11)
[2019-07-16] MEDS: BuPROPion XL (24 HR) 150 MG TABLET PO SCH (15:22)
[2019-07-16] MEDS: *HR* Heparin 5,000 UNIT/ML VIAL SQ SCH (18:48)
[2019-07-17] MEDS: Piperacillin/Tazobactam 3.375 GM in 0.9 % Sodium Chloride Mini Bag 100 ML IVPB SCH ×3 (01:52→16:05)
[2019-07-17] MEDS: *HR* Heparin 5,000 UNIT/ML VIAL SQ SCH ×2 (05:21→16:05)
[2019-07-17] MEDS: Acetaminophen 325 MG TABLET PO PRN (07:19)
[2019-07-17] MEDS: metroNIDAZOLE 500 MG TABLET PO SCH ×3 (07:59→22:08)
[2019-07-17] MEDS: Baclofen 10 MG TABLET PO SCH ×4 (07:59→22:08)
[2019-07-17] MEDS: BuPROPion XL (24 HR) 150 MG TABLET PO SCH (08:00)
[2019-07-17 09:53] LABS: Hematocrit 27.4 % (37.5-50.1); Hemoglobin 8.1 g/dL (12.9-16.9); Mean Corpuscular HGB Conc 29.6 g/dL (31.6-35.5); Mean Corpuscular Hemoglobin 28.8 pg (28.0-33.3); Mean Corpuscular Volume 97.5 fL (83.0-100.0); Mean Platelet Volume 11.1 fL (9.4-12.4); Platelet Count 266 K/mcL (140-400); Red Blood Count 2.81 M/mcL (4.19-5.50); Red Cell Distribution Width 15.4 % (11.5-14.5)
[2019-07-17 10:12] LABS: BUN/Creatinine Ratio 33 (6-26); Blood Urea Nitrogen 16 mg/dL (6-20); Calcium 8.9 mg/dL (8.6-10.3); Carbon Dioxide 35 mEq/L (23-29); Chloride 100 mEq/L (98-107); Glucose 119 mg/dL (70-105); Magnesium 1.8 mg/dL (1.6-2.6); Osmolality,Calculated 300 (280-300); Potassium 3.6 mEq/L (3.5-5.1); Sodium 144 mEq/L (136-145); eGFR For African Americans > 60 (> 60); eGFR For Non-African Americans > 60 (> 60)
[2019-07-18] MEDS: Piperacillin/Tazobactam 3.375 GM in 0.9 % Sodium Chloride Mini Bag 100 ML IVPB SCH ×3 (01:15→16:49)
[2019-07-18] MEDS: *HR* Heparin 5,000 UNIT/ML VIAL SQ SCH ×2 (06:03→16:48)
[2019-07-18] MEDS: BuPROPion XL (24 HR) 150 MG TABLET PO SCH (08:32)
[2019-07-18] MEDS: Baclofen 10 MG TABLET PO SCH ×4 (08:34→20:56)
[2019-07-18] MEDS: metroNIDAZOLE 500 MG TABLET PO SCH (08:34)
[2019-07-18] MEDS ORDERED: Aminoglycoside Consult 1 EACH MC ONE (09:10)
[2019-07-18] MEDS ORDERED: COLISTIN IVPB ONE (11:47)
[2019-07-18] MEDS ORDERED: SODIUM CHLORIDE 0.9% IVPB ONE (11:47)
[2019-07-18] MEDS: Acetaminophen 325 MG TABLET PO PRN (12:25)
[2019-07-19] MEDS: Piperacillin/Tazobactam 3.375 GM in 0.9 % Sodium Chloride Mini Bag 100 ML IVPB SCH ×3 (01:15→16:08)
[2019-07-19] MEDS: SODIUM CHLORIDE 0.9% IVPB SCH ×2 (01:15→11:30)
[2019-07-19] MEDS: COLISTIN IVPB SCH ×2 (01:15→11:30)
[2019-07-19] MEDS: *HR* Heparin 5,000 UNIT/ML VIAL SQ SCH ×2 (06:17→18:10)
[2019-07-19] MEDS: Baclofen 10 MG TABLET PO SCH ×4 (08:28→21:33)
[2019-07-19] MEDS: BuPROPion XL (24 HR) 150 MG TABLET PO SCH (08:29)
[2019-07-19] MEDS ORDERED: 0.9 % Sodium Chloride 250 ML IVC SCH (17:45)
[2019-07-20] MEDS: Piperacillin/Tazobactam 3.375 GM in 0.9 % Sodium Chloride Mini Bag 100 ML IVPB SCH ×3 (00:25→16:56)
[2019-07-20] MEDS: COLISTIN IVPB SCH ×3 (00:26→22:43)
[2019-07-20] MEDS: SODIUM CHLORIDE 0.9% IVPB SCH ×3 (00:26→22:43)
[2019-07-20 06:19] LABS: Hematocrit 30.1 % (37.5-50.1); Hemoglobin 9.3 g/dL (12.9-16.9); Mean Corpuscular HGB Conc 30.9 g/dL (31.6-35.5); Mean Corpuscular Hemoglobin 29.2 pg (28.0-33.3); Mean Corpuscular Volume 94.7 fL (83.0-100.0); Mean Platelet Volume 11.1 fL (9.4-12.4); Platelet Count 281 K/mcL (140-400); Red Blood Count 3.18 M/mcL (4.19-5.50); Red Cell Distribution Width 15.1 % (11.5-14.5); White Blood Count 6.3 K/mcL (4.3-11.1)
[2019-07-20] MEDS: *HR* Heparin 5,000 UNIT/ML VIAL SQ SCH ×2 (06:20→16:59)
[2019-07-20 06:34] LABS: BUN/Creatinine Ratio 28 (6-26); Blood Urea Nitrogen 17 mg/dL (6-20); Calcium 9.3 mg/dL (8.6-10.3); Carbon Dioxide 32 mEq/L (23-29); Chloride 96 mEq/L (98-107); Glucose 127 mg/dL (70-105); Magnesium 1.6 mg/dL (1.6-2.6); Osmolality,Calculated 287 (280-300); Potassium 3.9 mEq/L (3.5-5.1); Sodium 137 mEq/L (136-145); eGFR For African Americans > 60 (> 60); eGFR For Non-African Americans > 60 (> 60)
[2019-07-20] MEDS: BuPROPion XL (24 HR) 150 MG TABLET PO SCH (08:15)
[2019-07-20] MEDS: Baclofen 10 MG TABLET PO SCH ×4 (08:15→20:27)
[2019-07-21] MEDS: Piperacillin/Tazobactam 3.375 GM in 0.9 % Sodium Chloride Mini Bag 100 ML IVPB SCH ×2 (01:12→09:33)
[2019-07-21 02:39] LABS: Hematocrit 31.7 % (37.5-50.1); Hemoglobin 9.8 g/dL (12.9-16.9); Mean Corpuscular HGB Conc 30.9 g/dL (31.6-35.5); Mean Corpuscular Hemoglobin 29.4 pg (28.0-33.3); Mean Corpuscular Volume 95.2 fL (83.0-100.0); Mean Platelet Volume 10.7 fL (9.4-12.4); Platelet Count 296 K/mcL (140-400); Red Blood Count 3.33 M/mcL (4.19-5.50); Red Cell Distribution Width 15.2 % (11.5-14.5); White Blood Count 7.4 K/mcL (4.3-11.1)
[2019-07-21 02:58] LABS: BUN/Creatinine Ratio 28 (6-26); Blood Urea Nitrogen 20 mg/dL (6-20); Calcium 9.2 mg/dL (8.6-10.3); Carbon Dioxide 29 mEq/L (23-29); Chloride 100 mEq/L (98-107); Glucose 120 mg/dL (70-105); Osmolality,Calculated 288 (280-300); Potassium 3.6 mEq/L (3.5-5.1); Sodium 137 mEq/L (136-145); eGFR For African Americans > 60 (> 60); eGFR For Non-African Americans > 60 (> 60)
[2019-07-21] MEDS: *HR* Heparin 5,000 UNIT/ML VIAL SQ SCH ×2 (06:30→16:27)
[2019-07-21] MEDS: Baclofen 10 MG TABLET PO SCH ×4 (09:33→21:33)
[2019-07-21] MEDS: BuPROPion XL (24 HR) 150 MG TABLET PO SCH (09:34)
[2019-07-21] MEDS: 0.9 % Sodium Chloride 1,000 ML IVC SCH ×2 (12:00→22:01)
[2019-07-21] MEDS: COLISTIN IVPB SCH (13:28)
[2019-07-21] MEDS: SODIUM CHLORIDE 0.9% IVPB SCH (13:28)
[2019-07-22] MEDS: SODIUM CHLORIDE 0.9% IVPB SCH ×2 (01:17→11:54)
[2019-07-22] MEDS: COLISTIN IVPB SCH ×2 (01:17→11:54)
[2019-07-22 02:25] LABS: Hematocrit 30.6 % (37.5-50.1); Hemoglobin 9.3 g/dL (12.9-16.9); Mean Corpuscular HGB Conc 30.4 g/dL (31.6-35.5); Mean Corpuscular Hemoglobin 29.2 pg (28.0-33.3); Mean Corpuscular Volume 95.9 fL (83.0-100.0); Mean Platelet Volume 10.9 fL (9.4-12.4); Platelet Count 297 K/mcL (140-400); Red Blood Count 3.19 M/mcL (4.19-5.50); Red Cell Distribution Width 15.5 % (11.5-14.5)
[2019-07-22 02:42] LABS: Blood Urea Nitrogen 16 mg/dL (6-20); Calcium 8.8 mg/dL (8.6-10.3); Carbon Dioxide 25 mEq/L (23-29); Chloride 101 mEq/L (98-107); Glucose 109 mg/dL (70-105); Osmolality,Calculated 294 (280-300); Potassium 3.8 mEq/L (3.5-5.1); Sodium 141 mEq/L (136-145)
[2019-07-22 03:40] LABS: BUN/Creatinine Ratio 20 (6-26); eGFR For African Americans > 60 (> 60); eGFR For Non-African Americans > 60 (> 60)
[2019-07-22] MEDS: *HR* Heparin 5,000 UNIT/ML VIAL SQ SCH ×2 (05:00→16:12)
[2019-07-22] MEDS: Baclofen 10 MG TABLET PO SCH ×4 (07:59→20:46)
[2019-07-22] MEDS: BuPROPion XL (24 HR) 150 MG TABLET PO SCH (07:59)
[2019-07-22 15:34] LABS: ABG Base Excess 2 mEq/L (-2 to 3); ABG HCO3 29 mEq/L (21-27); ABG Oxygen Saturation 96 % (95-98); ABG PCO2 55 mmHg (35-45); ABG PH 7.33 pH Units (7.32-7.45); ABG PO2 87 mmHg (85-104); ABG TCO2 31 mEq/L (20-26)
[2019-07-22] MEDS: 0.9 % Sodium Chloride 1,000 ML IVC SCH (15:46)
[2019-07-22 16:39] LABS: Bilirubin,Urine Negative (Negative); Blood,Urine Negative (Negative); Clarity,Urine Clear (Clear); Color,Urine Yellow (Yellow); Glucose,Urine (UA) Normal (Normal); Ketones,Urine Negative (Negative); Leukocyte Esterase,Urine Negative (Negative); Nitrite,Urine Negative (Negative); PH,Urine 6.5 pH Units (5.0-8.0); Protein,Urine Negative (Neg-Trace); Specific Gravity,Urine 1.005 (1.010-1.025); Urobilinogen,Urine Normal (Normal)
[2019-07-23] MEDS: SODIUM CHLORIDE 0.9% IVPB SCH ×3 (00:34→23:49)
[2019-07-23] MEDS: COLISTIN IVPB SCH ×3 (00:34→23:49)
[2019-07-23] MEDS: 0.9 % Sodium Chloride 1,000 ML IVC SCH ×2 (00:37→13:41)
[2019-07-23] MEDS: *HR* Heparin 5,000 UNIT/ML VIAL SQ SCH ×2 (01:37→17:05)
[2019-07-23 05:22] LABS: Hematocrit 29.1 % (37.5-50.1); Mean Corpuscular HGB Conc 30.9 g/dL (31.6-35.5); Mean Corpuscular Hemoglobin 29.4 pg (28.0-33.3); Mean Corpuscular Volume 95.1 fL (83.0-100.0); Mean Platelet Volume 10.7 fL (9.4-12.4); Platelet Count 265 K/mcL (140-400); Red Blood Count 3.06 M/mcL (4.19-5.50); Red Cell Distribution Width 15.8 % (11.5-14.5); White Blood Count 7.7 K/mcL (4.3-11.1)
[2019-07-23 05:37] LABS: BUN/Creatinine Ratio 28 (6-26); Blood Urea Nitrogen 22 mg/dL (6-20); Calcium 8.9 mg/dL (8.6-10.3); Carbon Dioxide 24 mEq/L (23-29); Chloride 106 mEq/L (98-107); Glucose 93 mg/dL (70-105); Osmolality,Calculated 289 (280-300); Sodium 138 mEq/L (136-145); eGFR For African Americans > 60 (> 60); eGFR For Non-African Americans > 60 (> 60)
[2019-07-23] MEDS ORDERED: *HR* Propofol 200 MG/20 ML VIAL IVP ONE (08:09)
[2019-07-23] MEDS ORDERED: *HR* FentaNYL (PF) 100 MCG/2 ML VIAL ONE (08:09)
[2019-07-23] MEDS ORDERED: Lidocaine -MPF 2% 2 ML VIAL ONE (08:10)
[2019-07-23 08:40] LABS: ABG Base Excess 1 mEq/L (-2 to 3); ABG HCO3 29 mEq/L (21-27); ABG Oxygen Saturation 99 % (95-98); ABG PCO2 64 mmHg (35-45); ABG PH 7.26 pH Units (7.32-7.45); ABG PO2 143 mmHg (85-104); ABG TCO2 31 mEq/L (20-26)
[2019-07-23] MEDS: Baclofen 10 MG TABLET PO SCH ×4 (12:08→20:28)
[2019-07-23] MEDS: MethylPREDNISolone 40 MG/ML VIAL IVP SCH ×2 (13:41→23:49)
[2019-07-23] MEDS: BuPROPion XL (24 HR) 150 MG TABLET PO SCH (14:07)
[2019-07-23] MEDS: MetroNIDAZOLE 500 MG/100 ML 500 MG/100 ML BAG IVPB SCH ×2 (16:19→20:29)
[2019-07-23 17:55] LABS: Appearance of Body Fluid Cloudy (Clear); Volume of Body Fluid 12 mL
[2019-07-23 17:56] LABS: Appearance of Body Fluid Cloudy (Clear); Volume of Body Fluid 19 mL
[2019-07-24] MEDS: 0.9 % Sodium Chloride 1,000 ML IVC SCH ×2 (03:36→11:56)
[2019-07-24 04:28] LABS: ABG Base Excess -2 mEq/L (-2 to 3); ABG HCO3 22 mEq/L (21-27); ABG Oxygen Saturation 99 % (95-98); ABG PCO2 36 mmHg (35-45); ABG PO2 130 mmHg (85-104); ABG TCO2 23 mEq/L (20-26); Blood Gas Modality BiLevel; Blood Gas VT 500 cc
[2019-07-24] MEDS: *HR* Heparin 5,000 UNIT/ML VIAL SQ SCH ×2 (05:18→17:40)
[2019-07-24] MEDS: MetroNIDAZOLE 500 MG/100 ML 500 MG/100 ML BAG IVPB SCH ×3 (05:18→21:34)
[2019-07-24 05:24] LABS: Hematocrit 25.6 % (37.5-50.1); Mean Corpuscular HGB Conc 31.3 g/dL (31.6-35.5); Mean Corpuscular Hemoglobin 29.3 pg (28.0-33.3); Mean Corpuscular Volume 93.8 fL (83.0-100.0); Platelet Count 238 K/mcL (140-400); Red Blood Count 2.73 M/mcL (4.19-5.50); Red Cell Distribution Width 15.9 % (11.5-14.5); White Blood Count 6.2 K/mcL (4.3-11.1)
[2019-07-24 05:37] LABS: BUN/Creatinine Ratio 23 (6-26); Blood Urea Nitrogen 17 mg/dL (6-20); Calcium 8.6 mg/dL (8.6-10.3); Carbon Dioxide 19 mEq/L (23-29); Chloride 107 mEq/L (98-107); Glucose 131 mg/dL (70-105); Osmolality,Calculated 281 (280-300); Sodium 134 mEq/L (136-145); eGFR For African Americans > 60 (> 60); eGFR For Non-African Americans > 60 (> 60)
[2019-07-24] MEDS: Baclofen 10 MG TABLET PO SCH ×4 (07:50→21:33)
[2019-07-24] MEDS: BuPROPion XL (24 HR) 150 MG TABLET PO SCH (07:50)
[2019-07-24] MEDS: COLISTIN IVPB SCH (11:57)
[2019-07-24] MEDS: SODIUM CHLORIDE 0.9% IVPB SCH (11:57)
[2019-07-24] MEDS: MethylPREDNISolone 40 MG/ML VIAL IVP SCH (13:44)
[2019-07-25] MEDS: SODIUM CHLORIDE 0.9% IVPB SCH ×2 (01:08→14:20)
[2019-07-25] MEDS: COLISTIN IVPB SCH ×2 (01:08→14:20)
[2019-07-25] MEDS: MethylPREDNISolone 40 MG/ML VIAL IVP SCH ×2 (01:08→14:15)
[2019-07-25] MEDS: MetroNIDAZOLE 500 MG/100 ML 500 MG/100 ML BAG IVPB SCH ×3 (05:57→20:55)
[2019-07-25] MEDS: *HR* Heparin 5,000 UNIT/ML VIAL SQ SCH ×2 (05:57→17:00)
[2019-07-25 07:26] LABS: Hematocrit 26.4 % (37.5-50.1); Hemoglobin 8.4 g/dL (12.9-16.9); Mean Corpuscular HGB Conc 31.8 g/dL (31.6-35.5); Mean Corpuscular Hemoglobin 30.1 pg (28.0-33.3); Mean Corpuscular Volume 94.6 fL (83.0-100.0); Mean Platelet Volume 10.8 fL (9.4-12.4); Platelet Count 250 K/mcL (140-400); Red Blood Count 2.79 M/mcL (4.19-5.50); Red Cell Distribution Width 16.1 % (11.5-14.5); White Blood Count 5.7 K/mcL (4.3-11.1)
[2019-07-25 07:34] LABS: VBG HCO3 23 mEq/L (21-27); VBG PCO2 43 mmHg (41-51); VBG PH 7.33 pH Units (7.32-7.42); VBG PO2 195 mmHg (25-50)
[2019-07-25 07:41] LABS: BUN/Creatinine Ratio 22 (6-26); Blood Urea Nitrogen 18 mg/dL (6-20); Calcium 8.9 mg/dL (8.6-10.3); Carbon Dioxide 22 mEq/L (23-29); Chloride 105 mEq/L (98-107); Glucose 152 mg/dL (70-105); Osmolality,Calculated 291 (280-300); Sodium 138 mEq/L (136-145); eGFR For African Americans > 60 (> 60); eGFR For Non-African Americans > 60 (> 60)
[2019-07-25] MEDS ORDERED: Aminoglycoside Consult 1 EACH MC ONE (08:00)
[2019-07-25] MEDS: Baclofen 10 MG TABLET PO SCH ×4 (08:23→20:59)
[2019-07-25] MEDS: BuPROPion XL (24 HR) 150 MG TABLET PO SCH (08:23)
[2019-07-25] MEDS: Vancomycin 500 MG in 0.9 % Sodium Chloride Mini Bag 100 ML IVPB SCH ×2 (08:24→21:00)
[2019-07-25] MEDS ORDERED: 0.9 % Sodium Chloride 1,000 ML ONE (21:54)
[2019-07-26] MEDS: SODIUM CHLORIDE 0.9% IVPB SCH ×2 (01:39→08:51)
[2019-07-26] MEDS: COLISTIN IVPB SCH ×2 (01:39→08:51)
[2019-07-26] MEDS: 0.9 % Sodium Chloride 1,000 ML IVC SCH (01:40)
[2019-07-26] MEDS: MethylPREDNISolone 40 MG/ML VIAL IVP SCH ×2 (01:40→11:31)
[2019-07-26] MEDS: MetroNIDAZOLE 500 MG/100 ML 500 MG/100 ML BAG IVPB SCH ×3 (06:15→20:15)
[2019-07-26] MEDS: Baclofen 10 MG TABLET PO SCH ×4 (08:49→20:16)
[2019-07-26] MEDS: BuPROPion XL (24 HR) 150 MG TABLET PO SCH (08:49)
[2019-07-26] MEDS: Vancomycin 500 MG in 0.9 % Sodium Chloride Mini Bag 100 ML IVPB SCH (08:50)
[2019-07-26] MEDS: *HR* Heparin 5,000 UNIT/ML VIAL SQ SCH ×3 (17:33→20:03)
[2019-07-26] MEDS: Acetaminophen 325 MG TABLET PO PRN (20:16)
[2019-07-27] MEDS: SODIUM CHLORIDE 0.9% IVPB SCH ×2 (00:18→14:00)
[2019-07-27] MEDS: COLISTIN IVPB SCH ×2 (00:18→14:00)
[2019-07-27] MEDS: MethylPREDNISolone 40 MG/ML VIAL IVP SCH ×2 (00:19→12:14)
[2019-07-27 05:18] LABS: Hematocrit 31.6 % (37.5-50.1); Hemoglobin 9.9 g/dL (12.9-16.9); Mean Corpuscular HGB Conc 31.3 g/dL (31.6-35.5); Mean Corpuscular Hemoglobin 29.5 pg (28.0-33.3); Mean Platelet Volume 10.3 fL (9.4-12.4); Platelet Count 323 K/mcL (140-400); Red Blood Count 3.36 M/mcL (4.19-5.50); Red Cell Distribution Width 17.1 % (11.5-14.5)
[2019-07-27 05:19] LABS: VBG HCO3 24 mEq/L (21-27); VBG PCO2 44 mmHg (41-51); VBG PH 7.35 pH Units (7.32-7.42); VBG PO2 180 mmHg (25-50)
[2019-07-27 05:22] LABS: White Blood Count 8.9 K/mcL (4.3-11.1)
[2019-07-27] MEDS: *HR* Heparin 5,000 UNIT/ML VIAL SQ SCH ×2 (05:27→17:49)
[2019-07-27] MEDS: MetroNIDAZOLE 500 MG/100 ML 500 MG/100 ML BAG IVPB SCH ×3 (05:27→20:05)
[2019-07-27 06:39] LABS: BUN/Creatinine Ratio 26 (6-26); Blood Urea Nitrogen 22 mg/dL (6-20); Calcium 9.3 mg/dL (8.6-10.3); Carbon Dioxide 20 mEq/L (23-29); Chloride 103 mEq/L (98-107); Glucose 147 mg/dL (70-105); Osmolality,Calculated 288 (280-300); Potassium 4.6 mEq/L (3.5-5.1); Sodium 136 mEq/L (136-145); eGFR For African Americans > 60 (> 60); eGFR For Non-African Americans > 60 (> 60)
[2019-07-27] MEDS: Baclofen 10 MG TABLET PO SCH ×4 (08:39→20:03)
[2019-07-27] MEDS: BuPROPion XL (24 HR) 150 MG TABLET PO SCH (08:39)
[2019-07-27] MEDS: Acetaminophen 325 MG TABLET PO PRN (12:13)
[2019-07-28] MEDS: SODIUM CHLORIDE 0.9% IVPB SCH ×2 (01:53→11:39)
[2019-07-28] MEDS: MethylPREDNISolone 40 MG/ML VIAL IVP SCH ×2 (01:53→13:07)
[2019-07-28] MEDS: COLISTIN IVPB SCH ×2 (01:53→11:39)
[2019-07-28 05:33] LABS: Hematocrit 33.7 % (37.5-50.1); Hemoglobin 10.5 g/dL (12.9-16.9); Mean Corpuscular HGB Conc 31.2 g/dL (31.6-35.5); Mean Corpuscular Hemoglobin 29.8 pg (28.0-33.3); Mean Corpuscular Volume 95.7 fL (83.0-100.0); Mean Platelet Volume 11.5 fL (9.4-12.4); Platelet Count 298 K/mcL (140-400); Red Blood Count 3.52 M/mcL (4.19-5.50); Red Cell Distribution Width 17.5 % (11.5-14.5)
[2019-07-28 05:34] LABS: White Blood Count 15.2 K/mcL (4.3-11.1)
[2019-07-28 05:57] LABS: BUN/Creatinine Ratio 31 (6-26); Blood Urea Nitrogen 29 mg/dL (6-20); Calcium 9.3 mg/dL (8.6-10.3); Carbon Dioxide 22 mEq/L (23-29); Chloride 100 mEq/L (98-107); Glucose 138 mg/dL (70-105); Osmolality,Calculated 284 (280-300); Potassium 4.5 mEq/L (3.5-5.1); Sodium 133 mEq/L (136-145); eGFR For African Americans > 60 (> 60); eGFR For Non-African Americans > 60 (> 60)
[2019-07-28] MEDS: *HR* Heparin 5,000 UNIT/ML VIAL SQ SCH ×2 (06:37→18:19)
[2019-07-28] MEDS: MetroNIDAZOLE 500 MG/100 ML 500 MG/100 ML BAG IVPB SCH ×3 (06:37→20:14)
[2019-07-28] MEDS: BuPROPion XL (24 HR) 150 MG TABLET PO SCH (09:11)
[2019-07-28] MEDS: Baclofen 10 MG TABLET PO SCH ×4 (09:11→20:14)
[2019-07-29] MEDS: MethylPREDNISolone 40 MG/ML VIAL IVP SCH ×2 (00:01→12:15)
[2019-07-29] MEDS: SODIUM CHLORIDE 0.9% IVPB SCH ×2 (00:03→11:26)
[2019-07-29] MEDS: COLISTIN IVPB SCH ×2 (00:03→11:26)
[2019-07-29] MEDS: MetroNIDAZOLE 500 MG/100 ML 500 MG/100 ML BAG IVPB SCH ×2 (05:12→12:15)
[2019-07-29] MEDS: *HR* Heparin 5,000 UNIT/ML VIAL SQ SCH ×2 (05:16→18:18)
[2019-07-29] MEDS: BuPROPion XL (24 HR) 150 MG TABLET PO SCH (08:04)
[2019-07-29] MEDS: Baclofen 10 MG TABLET PO SCH ×4 (08:05→21:02)
[2019-07-29 15:03] LABS: Hematocrit 35.6 % (37.5-50.1); Hemoglobin 10.7 g/dL (12.9-16.9); Mean Corpuscular HGB Conc 30.1 g/dL (31.6-35.5); Mean Corpuscular Hemoglobin 29.7 pg (28.0-33.3); Mean Corpuscular Volume 98.9 fL (83.0-100.0); Mean Platelet Volume 10.8 fL (9.4-12.4); Platelet Count 318 K/mcL (140-400); Red Cell Distribution Width 17.4 % (11.5-14.5); White Blood Count 14.6 K/mcL (4.3-11.1)
[2019-07-29 15:22] LABS: BUN/Creatinine Ratio 41 (6-26); Blood Urea Nitrogen 31 mg/dL (6-20); Calcium 9.1 mg/dL (8.6-10.3); Carbon Dioxide 21 mEq/L (23-29); Chloride 100 mEq/L (98-107); Glucose 141 mg/dL (70-105); Magnesium 1.3 mg/dL (1.6-2.6); Osmolality,Calculated 287 (280-300); Sodium 134 mEq/L (136-145); eGFR For African Americans > 60 (> 60); eGFR For Non-African Americans > 60 (> 60)
[2019-07-30] MEDS: COLISTIN IVPB SCH ×2 (03:37→11:43)
[2019-07-30] MEDS: SODIUM CHLORIDE 0.9% IVPB SCH ×2 (03:37→11:43)
[2019-07-30 04:59] LABS: Hematocrit 34.5 % (37.5-50.1); Hemoglobin 10.9 g/dL (12.9-16.9); Mean Corpuscular HGB Conc 31.6 g/dL (31.6-35.5); Mean Corpuscular Hemoglobin 29.8 pg (28.0-33.3); Mean Corpuscular Volume 94.3 fL (83.0-100.0); Mean Platelet Volume 10.9 fL (9.4-12.4); Platelet Count 333 K/mcL (140-400); Red Blood Count 3.66 M/mcL (4.19-5.50); Red Cell Distribution Width 17.7 % (11.5-14.5); White Blood Count 12.7 K/mcL (4.3-11.1)
[2019-07-30 05:08] LABS: BUN/Creatinine Ratio 41 (6-26); Blood Urea Nitrogen 32 mg/dL (6-20); Calcium 9.2 mg/dL (8.6-10.3); Carbon Dioxide 24 mEq/L (23-29); Chloride 101 mEq/L (98-107); Glucose 102 mg/dL (70-105); Magnesium 1.4 mg/dL (1.6-2.6); Osmolality,Calculated 289 (280-300); Potassium 3.6 mEq/L (3.5-5.1); Sodium 136 mEq/L (136-145); eGFR For African Americans > 60 (> 60); eGFR For Non-African Americans > 60 (> 60)
[2019-07-30] MEDS: *HR* Heparin 5,000 UNIT/ML VIAL SQ SCH ×2 (06:02→17:23)
[2019-07-30] MEDS: Baclofen 10 MG TABLET PO SCH ×3 (08:33→16:04)
[2019-07-30] MEDS: predniSONE 20 MG TABLET PO SCH (08:33)
[2019-07-30] MEDS: BuPROPion XL (24 HR) 150 MG TABLET PO SCH (08:35)
[2019-07-31] MEDS: Baclofen 10 MG TABLET PO SCH ×5 (03:55→20:42)
[2019-07-31] MEDS: COLISTIN IVPB SCH ×2 (05:13→17:19)
[2019-07-31] MEDS: SODIUM CHLORIDE 0.9% IVPB SCH (05:13)
[2019-07-31] MEDS: *HR* Heparin 5,000 UNIT/ML VIAL SQ SCH ×2 (06:00→17:15)
[2019-07-31] MEDS: BuPROPion XL (24 HR) 150 MG TABLET PO SCH (08:17)
[2019-07-31] MEDS: predniSONE 20 MG TABLET PO SCH (08:17)
[2019-07-31] MEDS: WATER IVPB SCH (17:19)
[2019-07-31] MEDS: D5 IVPB SCH (17:19)
[2019-08-01 03:39] LABS: Hematocrit 33.8 % (37.5-50.1); Hemoglobin 10.7 g/dL (12.9-16.9); Mean Corpuscular HGB Conc 31.7 g/dL (31.6-35.5); Mean Corpuscular Hemoglobin 30.3 pg (28.0-33.3); Mean Corpuscular Volume 95.8 fL (83.0-100.0); Mean Platelet Volume 10.4 fL (9.4-12.4); Platelet Count 276 K/mcL (140-400); Red Blood Count 3.53 M/mcL (4.19-5.50); Red Cell Distribution Width 17.7 % (11.5-14.5); White Blood Count 8.9 K/mcL (4.3-11.1)
[2019-08-01 03:58] LABS: BUN/Creatinine Ratio 50 (6-26); Blood Urea Nitrogen 42 mg/dL (6-20); Calcium 9.5 mg/dL (8.6-10.3); Carbon Dioxide 23 mEq/L (23-29); Chloride 99 mEq/L (98-107); Glucose 124 mg/dL (70-105); Osmolality,Calculated 292 (280-300); Potassium 3.3 mEq/L (3.5-5.1); Sodium 135 mEq/L (136-145); eGFR For African Americans > 60 (> 60); eGFR For Non-African Americans > 60 (> 60)
[2019-08-01] MEDS: D5 IVPB SCH (05:48)
[2019-08-01] MEDS: COLISTIN IVPB SCH ×2 (05:48→16:19)
[2019-08-01] MEDS: WATER IVPB SCH (05:48)
[2019-08-01] MEDS: Baclofen 10 MG TABLET PO SCH ×4 (10:36→23:26)
[2019-08-01] MEDS: BuPROPion XL (24 HR) 150 MG TABLET PO SCH (10:36)
[2019-08-01] MEDS: predniSONE 20 MG TABLET PO SCH (10:38)
[2019-08-01] MEDS: SODIUM CHLORIDE 0.9% IVPB SCH (16:19)
[2019-08-02] MEDS: SODIUM CHLORIDE 0.9% IVPB SCH ×2 (04:15→17:14)
[2019-08-02] MEDS: COLISTIN IVPB SCH ×2 (04:15→17:14)
[2019-08-02 06:28] LABS: Alanine Aminotransferase 11 Units/L (7-52); Albumin 3.3 g/dL (3.5-5.7); Albumin/Globulin Ratio 0.8 (1.1-2.2); Alkaline Phosphatase 75 Units/L (34-104); Aspartate Amino Transferase 14 Units/L (13-39); BUN/Creatinine Ratio 80 (6-26); Bilirubin,Total 0.2 mg/dL (0.3-1.0); Blood Urea Nitrogen 52 mg/dL (6-20); Calcium 9.7 mg/dL (8.6-10.3); Carbon Dioxide 26 mEq/L (23-29); Chloride 97 mEq/L (98-107); Globulin 4.2 g/dL (2.4-3.5); Glucose 94 mg/dL (70-105); Osmolality,Calculated 296 (280-300); Potassium 3.4 mEq/L (3.5-5.1); Sodium 136 mEq/L (136-145); Total Protein 7.5 g/dL (6.4-8.9); eGFR For African Americans > 60 (> 60); eGFR For Non-African Americans > 60 (> 60)
[2019-08-02] MEDS: Baclofen 10 MG TABLET PO SCH ×4 (10:27→22:34)
[2019-08-02] MEDS: predniSONE 20 MG TABLET PO SCH (10:29)
[2019-08-02] MEDS: BuPROPion XL (24 HR) 150 MG TABLET PO SCH (10:29)
[2019-08-02] MEDS ORDERED: Isovue-370 500 ML BOTTLE IVP ONE (11:14)
[2019-08-03] MEDS: SODIUM CHLORIDE 0.9% IVPB SCH ×2 (04:23→17:44)
[2019-08-03] MEDS: COLISTIN IVPB SCH ×2 (04:23→17:44)
[2019-08-03 06:53] LABS: Hematocrit 32.9 % (37.5-50.1); Mean Corpuscular HGB Conc 30.4 g/dL (31.6-35.5); Mean Corpuscular Hemoglobin 30.1 pg (28.0-33.3); Mean Corpuscular Volume 99.1 fL (83.0-100.0); Mean Platelet Volume 10.5 fL (9.4-12.4); Platelet Count 235 K/mcL (140-400); Red Blood Count 3.32 M/mcL (4.19-5.50); Red Cell Distribution Width 17.5 % (11.5-14.5); White Blood Count 8.7 K/mcL (4.3-11.1)
[2019-08-03 07:15] LABS: BUN/Creatinine Ratio 58 (6-26); Blood Urea Nitrogen 45 mg/dL (6-20); Calcium 9.3 mg/dL (8.6-10.3); Carbon Dioxide 28 mEq/L (23-29); Chloride 98 mEq/L (98-107); Glucose 127 mg/dL (70-105); Magnesium 1.5 mg/dL (1.6-2.6); Osmolality,Calculated 295 (280-300); Potassium 3.4 mEq/L (3.5-5.1); Sodium 136 mEq/L (136-145); eGFR For African Americans > 60 (> 60); eGFR For Non-African Americans > 60 (> 60)
[2019-08-03] MEDS: predniSONE 20 MG TABLET PO SCH (10:49)
[2019-08-03] MEDS: Baclofen 10 MG TABLET PO SCH ×4 (10:49→23:19)
[2019-08-03] MEDS: BuPROPion XL (24 HR) 150 MG TABLET PO SCH (10:49)
[2019-08-04] MEDS: SODIUM CHLORIDE 0.9% IVPB SCH (04:30)
[2019-08-04] MEDS: COLISTIN IVPB SCH (04:30)
[2019-08-04 07:48] VITALS: BP 104/70
[2019-08-04] MEDS: Baclofen 10 MG TABLET PO SCH ×2 (08:01→11:29)
[2019-08-04] MEDS: BuPROPion XL (24 HR) 150 MG TABLET PO SCH (08:01)
[2019-08-04] MEDS: predniSONE 20 MG TABLET PO SCH (08:02)
== END 2019-08-04 16:42 | DRG 871 ==
LOC: 2NENU → SUATTDRO 18:23 → 2NNU 07-23 15:59 → 2NENU 07-30 21:01
PROVIDERS: ADMIT Internal Medicine; ATTEND Internal Medicine

== ENCOUNTER 2019-08-14 15:51 | Inpatient (IN) ==
[2019-08-14] MEDS ORDERED: Piperacillin/Tazobactam 3.375 GM in 0.9 % Sodium Chloride Mini Bag 100 ML IVPB ONE (15:57)
[2019-08-14] MEDS: 0.9 % Sodium Chloride 1,000 ML IVC SCH ×3 (16:36→22:43)
[2019-08-14 16:46] LABS: Hematocrit 30.3 % (37.5-50.1); Hemoglobin 9.3 g/dL (12.9-16.9); Mean Corpuscular HGB Conc 30.7 g/dL (31.6-35.5); Mean Corpuscular Hemoglobin 29.7 pg (28.0-33.3); Mean Corpuscular Volume 96.8 fL (83.0-100.0); Platelet Count 195 K/mcL (140-400); Red Blood Count 3.13 M/mcL (4.19-5.50); Red Cell Distribution Width 15.9 % (11.5-14.5); White Blood Count 8.2 K/mcL (4.3-11.1)
[2019-08-14 17:16] LABS: Alanine Aminotransferase 13 Units/L (7-52); Albumin 2.9 g/dL (3.5-5.7); Albumin/Globulin Ratio 0.7 (1.1-2.2); Alkaline Phosphatase 113 Units/L (34-104); Aspartate Amino Transferase 14 Units/L (13-39); BUN/Creatinine Ratio 27 (6-26); Bilirubin,Direct 0.2 mg/dL (0.0-0.2); Bilirubin,Indirect 0.2 mg/dL (0.0-1.0); Bilirubin,Total 0.4 mg/dL (0.3-1.0); Blood Urea Nitrogen 21 mg/dL (6-20); Calcium 8.2 mg/dL (8.6-10.3); Carbon Dioxide 24 mEq/L (23-29); Chloride 104 mEq/L (98-107); Globulin 3.9 g/dL (2.4-3.5); Glucose 121 mg/dL (70-105); Osmolality,Calculated 290 (280-300); Potassium 3.8 mEq/L (3.5-5.1); Sodium 138 mEq/L (136-145); Total Protein 6.8 g/dL (6.4-8.9); eGFR For African Americans > 60 (> 60); eGFR For Non-African Americans > 60 (> 60)
[2019-08-14] MEDS ORDERED: Isovue-370 500 ML BOTTLE IVP ONE (18:15)
[2019-08-14 18:41] LABS: Troponin I < 0.03 ng/mL (< 0.04)
[2019-08-14] MEDS ORDERED: 0.9 % Sodium Chloride 250 ML ONE (18:54)
[2019-08-14] MEDS ORDERED: Vancomycin 1,000 MG VIAL ONE (18:54)
[2019-08-14] MEDS ORDERED: Ondansetron 4 MG/2 ML VIAL IVP PRN (20:31)
[2019-08-14] MEDS ORDERED: Naloxone 0.4 MG/ML INJ IVP PRN (20:31)
[2019-08-14 20:46] LABS: ABG Base Excess -2 mEq/L (-2 to 3); ABG HCO3 25 mEq/L (21-27); ABG Oxygen Saturation 98 % (95-98); ABG PCO2 50 mmHg (35-45); ABG PO2 108 mmHg (85-104); ABG TCO2 26 mEq/L (20-26)
[2019-08-14] MEDS ORDERED: Colistin (Colistimethate) 300 MG in 0.9 % Sodium Chloride 50 ML IVPB ONE (21:13)
[2019-08-14] MEDS: Baclofen 10 MG TABLET PO SCH (22:47)
[2019-08-14] MEDS: Melatonin 3 MG TABLET PO SCH (22:47)
[2019-08-14] MEDS: Lactobacillus 1 EACH CAP.SPRINK PO SCH (22:47)
[2019-08-14] MEDS: diazePAM 10 MG TABLET PO SCH (22:48)
[2019-08-14 23:35] LABS: Bilirubin,Urine Negative (Negative); Blood,Urine Negative (Negative); Clarity,Urine Cloudy (Clear); Color,Urine Yellow (Yellow); Glucose,Urine (UA) Normal (Normal); Ketones,Urine Negative (Negative); Leukocyte Esterase,Urine Large (Negative); Nitrite,Urine Negative (Negative); PH,Urine 7.5 pH Units (5.0-8.0); Protein,Urine Trace mg/dL (Neg-Trace); Specific Gravity,Urine 1.017 (1.010-1.025); Urobilinogen,Urine Normal (Normal)
[2019-08-14 23:37] LABS: Bacteria,Urine None Seen per hpf (None-Few); Hyaline Casts,Urine Moderate per lpf (None-Few); RBC,Urine 0-3 per hpf (0-3); Squamous Epithelial Cell,Urine Moderate per lpf (None-Few); WBC,Urine 50-100 per hpf (0-3)
[2019-08-14] MEDS: Ipratropium/Albuterol Neb 3 ML IH SCH (23:38)
[2019-08-14] MEDS: *HR* Heparin 5,000 UNIT/ML VIAL SQ SCH (23:41)
[2019-08-15] MEDS: Ipratropium/Albuterol Neb 3 ML IH SCH ×6 (04:04→23:23)
[2019-08-15] MEDS: *HR* Heparin 5,000 UNIT/ML VIAL SQ SCH ×3 (04:57→23:35)
[2019-08-15] MEDS: 0.9 % Sodium Chloride 1,000 ML IVC SCH (04:59)
[2019-08-15 05:45] LABS: BUN/Creatinine Ratio 21 (6-26); Blood Urea Nitrogen 15 mg/dL (6-20); Calcium 7.7 mg/dL (8.6-10.3); Carbon Dioxide 24 mEq/L (23-29); Chloride 108 mEq/L (98-107); Glucose 91 mg/dL (70-105); Magnesium 1.5 mg/dL (1.6-2.6); Osmolality,Calculated 302 (280-300); Potassium 3.1 mEq/L (3.5-5.1); Sodium 146 mEq/L (136-145); eGFR For African Americans > 60 (> 60); eGFR For Non-African Americans > 60 (> 60)
[2019-08-15 06:20] LABS: Basophils % 0.1 %; Eosinophils # 0.2 K/mcL (0.0-0.6); Eosinophils % 3.3 %; Hematocrit 25.1 % (37.5-50.1); Immature Granulocytes % 0.3 % (0-4); Lymphocytes # 1.1 K/mcL (0.6-4.6); Lymphocytes % 16.9 %; Mean Corpuscular HGB Conc 30.3 g/dL (31.6-35.5); Mean Corpuscular Hemoglobin 30.2 pg (28.0-33.3); Mean Corpuscular Volume 99.6 fL (83.0-100.0); Mean Platelet Volume 11.3 fL (9.4-12.4); Monocytes # 0.4 K/mcL (0.0-1.3); Monocytes % 5.4 %; Neutrophils # 4.9 K/mcL (1.6-8.9); Platelet Count 179 K/mcL (140-400); Red Blood Count 2.52 M/mcL (4.19-5.50); Red Cell Distribution Width 16.1 % (11.5-14.5); White Blood Count 6.7 K/mcL (4.3-11.1)
[2019-08-15 06:22] LABS: Hemoglobin 7.6 g/dL (12.9-16.9)
[2019-08-15] MEDS: BuPROPion XL (24 HR) 150 MG TABLET PO SCH (07:58)
[2019-08-15] MEDS: diazePAM 10 MG TABLET PO SCH ×3 (07:59→21:01)
[2019-08-15] MEDS: Baclofen 10 MG TABLET PO SCH ×4 (07:59→20:59)
[2019-08-15] MEDS: Lactobacillus 1 EACH CAP.SPRINK PO SCH ×2 (07:59→21:01)
[2019-08-15] MEDS: Colistin (Colistimethate) 150 MG in 0.9 % Sodium Chloride 50 ML IVPB SCH ×2 (09:42→21:01)
[2019-08-15] MEDS ORDERED: *HR* Promethazine 25 MG/ML VIAL IVP PRN (16:15)
[2019-08-15] MEDS: Melatonin 3 MG TABLET PO SCH (21:00)
[2019-08-16] MEDS: Ipratropium/Albuterol Neb 3 ML IH SCH ×6 (04:04→23:51)
[2019-08-16] MEDS: *HR* Heparin 5,000 UNIT/ML VIAL SQ SCH (05:29)
[2019-08-16 06:03] LABS: Basophils % 0.4 %; Eosinophils # 0.2 K/mcL (0.0-0.6); Eosinophils % 3.7 %; Hematocrit 22.6 % (37.5-50.1); Hemoglobin 6.8 g/dL (12.9-16.9); Immature Granulocytes % 0.5 % (0-4); Lymphocytes # 0.9 K/mcL (0.6-4.6); Lymphocytes % 15.4 %; Mean Corpuscular HGB Conc 30.1 g/dL (31.6-35.5); Mean Corpuscular Hemoglobin 30.4 pg (28.0-33.3); Mean Corpuscular Volume 100.9 fL (83.0-100.0); Mean Platelet Volume 11.3 fL (9.4-12.4); Monocytes # 0.3 K/mcL (0.0-1.3); Monocytes % 4.7 %; Neutrophils # 4.3 K/mcL (1.6-8.9); Platelet Count 175 K/mcL (140-400); Red Blood Count 2.24 M/mcL (4.19-5.50); Red Cell Distribution Width 16.1 % (11.5-14.5); Segmented Neutrophils % 75.3 %; White Blood Count 5.7 K/mcL (4.3-11.1)
[2019-08-16 06:22] LABS: BUN/Creatinine Ratio 16 (6-26); Blood Urea Nitrogen 14 mg/dL (6-20); Carbon Dioxide 24 mEq/L (23-29); Chloride 105 mEq/L (98-107); Glucose 77 mg/dL (70-105); Osmolality,Calculated 283 (280-300); Potassium 3.3 mEq/L (3.5-5.1); Sodium 137 mEq/L (136-145); eGFR For African Americans > 60 (> 60); eGFR For Non-African Americans > 60 (> 60)
[2019-08-16] MEDS ORDERED: Furosemide 20 MG/2 ML VIAL IVP ONE (07:43)
[2019-08-16] MEDS ORDERED: 0.9 % Sodium Chloride 250 ML IVC SCH (07:45)
[2019-08-16 08:15] LABS: Hematocrit 22.4 % (37.5-50.1); Hemoglobin 6.7 g/dL (12.9-16.9)
[2019-08-16] MEDS: BuPROPion XL (24 HR) 150 MG TABLET PO SCH (08:20)
[2019-08-16] MEDS: Baclofen 10 MG TABLET PO SCH ×4 (08:21→21:59)
[2019-08-16] MEDS: Furosemide 20 MG TABLET PO SCH (08:21)
[2019-08-16] MEDS: Lactobacillus 1 EACH CAP.SPRINK PO SCH ×2 (08:21→21:59)
[2019-08-16] MEDS: diazePAM 10 MG TABLET PO SCH ×3 (08:21→21:59)
[2019-08-16] MEDS: Colistin (Colistimethate) 150 MG in 0.9 % Sodium Chloride 50 ML IVPB SCH ×2 (08:29→22:00)
[2019-08-16] MEDS: Acetaminophen 325 MG TABLET PO PRN (09:03)
[2019-08-16 17:18] LABS: Hematocrit 29.6 % (37.5-50.1)
[2019-08-16 17:19] LABS: Hemoglobin 9.3 g/dL (12.9-16.9)
[2019-08-16 17:35] LABS: Magnesium 1.3 mg/dL (1.6-2.6)
[2019-08-16 20:07] LABS: Hematocrit 29.8 % (37.5-50.1); Hemoglobin 9.2 g/dL (12.9-16.9)
[2019-08-17] MEDS: Acetaminophen 325 MG TABLET PO PRN ×2 (00:16→08:45)
[2019-08-17] MEDS: Ipratropium/Albuterol Neb 3 ML IH SCH ×6 (04:07→23:30)
[2019-08-17 04:27] LABS: Basophils % 0.4 %; Eosinophils # 0.2 K/mcL (0.0-0.6); Eosinophils % 3.7 %; Hematocrit 27.6 % (37.5-50.1); Hemoglobin 8.7 g/dL (12.9-16.9); Immature Granulocytes % 0.4 % (0-4); Lymphocytes # 0.7 K/mcL (0.6-4.6); Mean Corpuscular HGB Conc 31.5 g/dL (31.6-35.5); Mean Corpuscular Hemoglobin 30.1 pg (28.0-33.3); Mean Corpuscular Volume 95.5 fL (83.0-100.0); Mean Platelet Volume 11.1 fL (9.4-12.4); Monocytes # 0.2 K/mcL (0.0-1.3); Monocytes % 4.4 %; Neutrophils # 4.3 K/mcL (1.6-8.9); Platelet Count 204 K/mcL (140-400); Red Blood Count 2.89 M/mcL (4.19-5.50); Red Cell Distribution Width 16.3 % (11.5-14.5); Segmented Neutrophils % 78.1 %; White Blood Count 5.5 K/mcL (4.3-11.1)
[2019-08-17 04:46] LABS: BUN/Creatinine Ratio 14 (6-26); Blood Urea Nitrogen 13 mg/dL (6-20); Calcium 8.2 mg/dL (8.6-10.3); Carbon Dioxide 23 mEq/L (23-29); Chloride 103 mEq/L (98-107); Glucose 103 mg/dL (70-105); Osmolality,Calculated 282 (280-300); Potassium 3.5 mEq/L (3.5-5.1); Sodium 136 mEq/L (136-145); eGFR For African Americans > 60 (> 60); eGFR For Non-African Americans > 60 (> 60)
[2019-08-17] MEDS: BuPROPion XL (24 HR) 150 MG TABLET PO SCH (08:45)
[2019-08-17] MEDS: Lactobacillus 1 EACH CAP.SPRINK PO SCH ×2 (08:45→19:47)
[2019-08-17] MEDS: Furosemide 20 MG TABLET PO SCH (08:46)
[2019-08-17] MEDS: diazePAM 10 MG TABLET PO SCH ×3 (08:46→19:47)
[2019-08-17] MEDS: Baclofen 10 MG TABLET PO SCH ×4 (08:46→19:48)
[2019-08-17] MEDS: Colistin (Colistimethate) 150 MG in 0.9 % Sodium Chloride 50 ML IVPB SCH (10:23)
[2019-08-17 16:10] LABS: Adenovirus Not Detected (Not Detect); Bordetella Pertussis Not Detected (Not Detect); Chlamydophila pneumoniae Not Detected (Not Detect); Coronavirus 229E Not Detected (Not Detect); Coronavirus HKU1 Not Detected (Not Detect); Coronavirus NL63 Not Detected (Not Detect); Coronavirus OC43 Not Detected (Not Detect); Human Metapneumovirus Not Detected (Not Detect); Human Rhinovirus/Enterovirus Not Detected (Not Detect); Influenza A Subtype 2009 H1 Not Detected (Not Detect); Influenza B Not Detected (Not Detect); Mycoplasma pneumoniae Not Detected (Not Detect); Parainfluenza Virus 1 Not Detected (Not Detect); Parainfluenza Virus 2 Not Detected (Not Detect); Parainfluenza Virus 3 Not Detected (Not Detect); Parainfluenza Virus 4 Not Detected (Not Detect); Respiratory Syncytial Virus Not Detected (Not Detect)
[2019-08-17] MEDS ORDERED: 0.9 % Sodium Chloride 250 ML ONE (19:36)
[2019-08-17] MEDS: Melatonin 3 MG TABLET PO SCH (19:48)
[2019-08-17] MEDS: Colistin (Colistimethate) 100 MG in 0.9 % Sodium Chloride 50 ML IVPB SCH (19:49)
[2019-08-18] MEDS: Ipratropium/Albuterol Neb 3 ML IH SCH ×5 (03:45→19:56)
[2019-08-18 06:11] LABS: Basophils % 0.2 %; Eosinophils # 0.2 K/mcL (0.0-0.6); Eosinophils % 2.5 %; Hematocrit 29.7 % (37.5-50.1); Hemoglobin 9.3 g/dL (12.9-16.9); Immature Granulocytes % 0.3 % (0-4); Lymphocytes # 0.7 K/mcL (0.6-4.6); Lymphocytes % 12.1 %; Mean Corpuscular HGB Conc 31.3 g/dL (31.6-35.5); Mean Corpuscular Hemoglobin 29.9 pg (28.0-33.3); Mean Corpuscular Volume 95.5 fL (83.0-100.0); Monocytes # 0.2 K/mcL (0.0-1.3); Monocytes % 3.5 %; Neutrophils # 4.8 K/mcL (1.6-8.9); Platelet Count 253 K/mcL (140-400); Red Blood Count 3.11 M/mcL (4.19-5.50); Red Cell Distribution Width 15.9 % (11.5-14.5); Segmented Neutrophils % 81.4 %
[2019-08-18 06:32] LABS: BUN/Creatinine Ratio 14 (6-26); Blood Urea Nitrogen 14 mg/dL (6-20); Calcium 8.6 mg/dL (8.6-10.3); Carbon Dioxide 28 mEq/L (23-29); Chloride 99 mEq/L (98-107); Glucose 94 mg/dL (70-105); Osmolality,Calculated 286 (280-300); Potassium 3.7 mEq/L (3.5-5.1); Sodium 138 mEq/L (136-145); eGFR For African Americans > 60 (> 60); eGFR For Non-African Americans > 60 (> 60)
[2019-08-18] MEDS: Furosemide 20 MG TABLET PO SCH (08:37)
[2019-08-18] MEDS: BuPROPion XL (24 HR) 150 MG TABLET PO SCH (08:37)
[2019-08-18] MEDS: Baclofen 10 MG TABLET PO SCH ×4 (08:37→20:31)
[2019-08-18] MEDS: diazePAM 10 MG TABLET PO SCH ×3 (08:38→20:32)
[2019-08-18] MEDS: Lactobacillus 1 EACH CAP.SPRINK PO SCH ×2 (08:39→20:31)
[2019-08-18] MEDS: Colistin (Colistimethate) 100 MG in 0.9 % Sodium Chloride 50 ML IVPB SCH ×2 (11:04→20:32)
[2019-08-18] MEDS: Acetaminophen 325 MG TABLET PO PRN (12:03)
[2019-08-18 16:48] LABS: ABG Base Excess 2 mEq/L (-2 to 3); ABG HCO3 29 mEq/L (21-27); ABG Oxygen Saturation 95 % (95-98); ABG PCO2 55 mmHg (35-45); ABG PH 7.33 pH Units (7.32-7.45); ABG PO2 84 mmHg (85-104); ABG TCO2 31 mEq/L (20-26)
[2019-08-18 16:52] LABS: Basophils % 0.3 %; Eosinophils # 0.2 K/mcL (0.0-0.6); Hematocrit 29.5 % (37.5-50.1); Hemoglobin 9.3 g/dL (12.9-16.9); Immature Granulocytes % 0.6 % (0-4); Lymphocytes # 0.9 K/mcL (0.6-4.6); Lymphocytes % 13.6 %; Mean Corpuscular HGB Conc 31.5 g/dL (31.6-35.5); Mean Corpuscular Hemoglobin 30.4 pg (28.0-33.3); Mean Corpuscular Volume 96.4 fL (83.0-100.0); Monocytes # 0.4 K/mcL (0.0-1.3); Monocytes % 5.5 %; Neutrophils # 4.9 K/mcL (1.6-8.9); Platelet Count 266 K/mcL (140-400); Red Blood Count 3.06 M/mcL (4.19-5.50); Red Cell Distribution Width 15.9 % (11.5-14.5); White Blood Count 6.3 K/mcL (4.3-11.1)
[2019-08-18 17:03] LABS: Alanine Aminotransferase 9 Units/L (7-52); Albumin 2.8 g/dL (3.5-5.7); Albumin/Globulin Ratio 0.8 (1.1-2.2); Alkaline Phosphatase 137 Units/L (34-104); Aspartate Amino Transferase 10 Units/L (13-39); BUN/Creatinine Ratio 16 (6-26); Bilirubin,Total 0.3 mg/dL (0.3-1.0); Blood Urea Nitrogen 18 mg/dL (6-20); Calcium 8.6 mg/dL (8.6-10.3); Carbon Dioxide 26 mEq/L (23-29); Chloride 100 mEq/L (98-107); Globulin 3.7 g/dL (2.4-3.5); Glucose 89 mg/dL (70-105); Osmolality,Calculated 287 (280-300); Potassium 4.1 mEq/L (3.5-5.1); Sodium 138 mEq/L (136-145); Total Protein 6.5 g/dL (6.4-8.9); eGFR For African Americans > 60 (> 60); eGFR For Non-African Americans > 60 (> 60)
[2019-08-18] MEDS: Melatonin 3 MG TABLET PO SCH (20:32)
[2019-08-19] MEDS: Ipratropium/Albuterol Neb 3 ML IH SCH ×6 (00:14→20:26)
[2019-08-19 04:44] LABS: Hematocrit 31.2 % (37.5-50.1); Hemoglobin 9.5 g/dL (12.9-16.9); Mean Corpuscular HGB Conc 30.4 g/dL (31.6-35.5); Mean Corpuscular Hemoglobin 30.1 pg (28.0-33.3); Mean Corpuscular Volume 98.7 fL (83.0-100.0); Mean Platelet Volume 10.9 fL (9.4-12.4); Platelet Count 320 K/mcL (140-400); Red Blood Count 3.16 M/mcL (4.19-5.50); Red Cell Distribution Width 15.9 % (11.5-14.5); White Blood Count 7.2 K/mcL (4.3-11.1)
[2019-08-19 05:04] LABS: BUN/Creatinine Ratio 20 (6-26); Blood Urea Nitrogen 21 mg/dL (6-20); Calcium 8.6 mg/dL (8.6-10.3); Carbon Dioxide 27 mEq/L (23-29); Chloride 100 mEq/L (98-107); Glucose 116 mg/dL (70-105); Osmolality,Calculated 290 (280-300); Potassium 3.7 mEq/L (3.5-5.1); Sodium 138 mEq/L (136-145); eGFR For African Americans > 60 (> 60); eGFR For Non-African Americans > 60 (> 60)
[2019-08-19] MEDS: BuPROPion XL (24 HR) 150 MG TABLET PO SCH (08:10)
[2019-08-19] MEDS: Lactobacillus 1 EACH CAP.SPRINK PO SCH (08:10)
[2019-08-19] MEDS: Baclofen 10 MG TABLET PO SCH ×3 (08:12→16:56)
[2019-08-19] MEDS: Furosemide 20 MG TABLET PO SCH (08:12)
[2019-08-19] MEDS: diazePAM 10 MG TABLET PO SCH ×2 (08:19→14:49)
[2019-08-19] MEDS: Colistin (Colistimethate) 100 MG in 0.9 % Sodium Chloride 50 ML IVPB SCH (08:25)
[2019-08-19] MEDS: Ringers Solution, Lactated 1,000 ML IVC SCH ×2 (08:34→16:34)
[2019-08-19] MEDS ORDERED: Isovue-370 500 ML BOTTLE IVP ONE (10:12)
[2019-08-19 14:51] LABS: ABG Base Excess 3 mEq/L (-2 to 3); ABG HCO3 30 mEq/L (21-27); ABG Oxygen Saturation 97 % (95-98); ABG PCO2 55 mmHg (35-45); ABG PH 7.34 pH Units (7.32-7.45); ABG PO2 99 mmHg (85-104); ABG TCO2 31 mEq/L (20-26)
[2019-08-19] MEDS ORDERED: Ringers Solution, Lactated 500 ML IVC ONE ×2 (15:29→15:45)
[2019-08-19] MEDS ORDERED: Cefepime HCl 2,000 MG in Water for inj. (sterile) 20 ML IVP SCH (16:00)
[2019-08-19 20:19] VITALS: BP 101/66
[2019-08-19] MEDS ORDERED: Aminoglycoside Consult 1 EACH MC ONE (20:53)
[2019-08-19] MEDS ORDERED: *HR* Heparin 5,000 UNIT/ML VIAL SQ SCH (22:00)
== END 2019-08-19 20:54 | disposition short-term general hospital (02) | DRG 698 ==
LOC: 2NNU 15:51 → EMEROOARM 15:51 → SUATTDRO 18:34 → 2NNU 20:10 → SUATTDRO 08-15 15:38
PROVIDERS: ADMIT Student in an Organized Health Care Education/Training Program; ATTEND Internal Medicine

== ENCOUNTER 2020-07-12 19:09 | Inpatient (IN) ==
[2020-07-12] MEDS ORDERED: 0.9 % Sodium Chloride 1,000 ML IVC ONE (20:20)
[2020-07-12] MEDS ORDERED: Isovue-370 500 ML BOTTLE IVP ONE (20:21)
[2020-07-12 21:21] LABS: Bacteria,Urine Few per hpf (None-Few); Bilirubin,Urine Small (Negative); Blood,Urine Large (Negative); Clarity,Urine Ex.Turbid (Clear); Color,Urine Yellow (Yellow); Glucose,Urine (UA) Normal (Normal); Hyaline Casts,Urine Moderate per lpf (None Seen); Ketones,Urine 150 mg/dL (Negative); Leukocyte Esterase,Urine Large (Negative); Mucus,Urine Few per lpf (None-Few); Nitrite,Urine Negative (Negative); Protein,Urine >=600 mg/dL (Neg-Trace); RBC,Urine TNTC per hpf (0-3); Renal Epithelial Cells,Urine Few per hpf (None-Few); Uric Acid Crystals,Urine Present; WBC,Urine TNTC per hpf (0-3)
[2020-07-12 22:15] LABS: Basophils % 0.5 %; Eosinophils % 0.3 %; Hematocrit 46.9 % (37.5-50.1); Hemoglobin 14.2 g/dL (12.9-16.9); Immature Granulocytes % 0.8 % (0-4); Lymphocytes # 1.2 K/mcL (0.6-4.6); Lymphocytes % 13.4 %; Mean Corpuscular HGB Conc 30.3 g/dL (31.6-35.5); Mean Corpuscular Volume 89.3 fL (83.0-100.0); Mean Platelet Volume 10.7 fL (9.4-12.4); Monocytes # 0.5 K/mcL (0.0-1.3); Monocytes % 5.1 %; Platelet Count 212 K/mcL (140-400); Red Blood Count 5.25 M/mcL (4.19-5.50); Red Cell Distribution Width 17.7 % (11.5-14.5); Segmented Neutrophils % 79.9 %; White Blood Count 8.7 K/mcL (4.3-11.1)
[2020-07-12 22:35] LABS: Alanine Aminotransferase 16 Units/L (7-52); Albumin 3.2 g/dL (3.5-5.7); Albumin/Globulin Ratio 0.7 (1.1-2.2); Alkaline Phosphatase 96 Units/L (34-104); Aspartate Amino Transferase 16 Units/L (13-39); BUN/Creatinine Ratio 33 (6-26); Bilirubin,Total 0.3 mg/dL (0.3-1.0); Blood Urea Nitrogen 19 mg/dL (6-20); Calcium 9.3 mg/dL (8.6-10.3); Carbon Dioxide 30 mEq/L (23-29); Chloride 106 mEq/L (98-107); Globulin 4.5 g/dL (2.4-3.5); Glucose 80 mg/dL (70-105); Lipase 29 Units/L (11-82); Osmolality,Calculated 311 (280-300); Potassium 3.4 mEq/L (3.5-5.1); Sodium 150 mEq/L (136-145); Total Protein 7.7 g/dL (6.4-8.9); eGFR For African Americans > 60 (> 60); eGFR For Non-African Americans > 60 (> 60)
[2020-07-12] MEDS ORDERED: cefTRIAXone 1,000 MG in Water for inj. (sterile) 10 ML IVP ONE (23:03)
[2020-07-12] MEDS ORDERED: 0.9 % Sodium Chloride 1,000 ML IV ONE (23:40)
[2020-07-12] MEDS ORDERED: Azithromycin 500 MG in 0.9 % Sodium Chloride 250 ML IVPB ONE (23:40)
[2020-07-12] MEDS ORDERED: Ertapenem 1,000 MG in 0.9 % Sodium Chloride Mini Bag 100 ML IVPB ONE (23:54)
[2020-07-13] MEDS ORDERED: Ondansetron ODT 4 MG TAB.RAPDIS SL PRN (03:42)
[2020-07-13] MEDS ORDERED: Naloxone 0.4 MG/ML INJ IVP PRN (03:42)
[2020-07-13 04:06] LABS: BUN/Creatinine Ratio 38 (6-26); Blood Urea Nitrogen 15 mg/dL (6-20); Calcium 7.9 mg/dL (8.6-10.3); Carbon Dioxide 25 mEq/L (23-29); Chloride 114 mEq/L (98-107); Glucose 68 mg/dL (70-105); Osmolality,Calculated 315 (280-300); Sodium 153 mEq/L (136-145); eGFR For African Americans > 60 (> 60); eGFR For Non-African Americans > 60 (> 60)
[2020-07-13] MEDS ORDERED: Potassium Chloride 40 MEQ, Lidocaine 1% 2 ML in 0.9 % Sodium Chloride 500 ML IVPB ONE (05:00)
[2020-07-13] MEDS ORDERED: D5% in 0.45% NACL 1,000 ML IVC SCH (05:00)
[2020-07-13] MEDS: *HR* Heparin 5,000 UNIT/ML VIAL SQ SCH ×3 (05:42→22:03)
[2020-07-13 07:18] LABS: INR 1.2; Prothrombin Time 14.3 Seconds (9.4-12.1)
[2020-07-13] MEDS ORDERED: Meropenem 1,000 MG in Water for inj. (sterile) 20 ML IVP SCH (08:00)
[2020-07-13] MEDS: Pantoprazole 40 MG VIAL IVP SCH (08:52)
[2020-07-13] MEDS: Piperacillin/Tazobactam 3.375 GM in 0.9 % Sodium Chloride Mini Bag 100 ML IVPB SCH ×2 (08:52→15:03)
[2020-07-13] MEDS: Dexamethasone 4 MG/ML VIAL IVP SCH (08:53)
[2020-07-13] MEDS ORDERED: D5% in Water 1,000 ML IVC SCH ×2 (09:00→18:13)
[2020-07-13] MEDS ORDERED: *HR* Dextrose 50 % in Water (Vial) 50 ML VIAL IVP PRN (17:56)
[2020-07-13 17:57] LABS: BUN/Creatinine Ratio 22 (6-26); Blood Urea Nitrogen 9 mg/dL (6-20); Calcium 8.5 mg/dL (8.6-10.3); Carbon Dioxide 25 mEq/L (23-29); Chloride 112 mEq/L (98-107); Glucose 121 mg/dL (70-105); Osmolality,Calculated 308 (280-300); Potassium 3.8 mEq/L (3.5-5.1); Sodium 149 mEq/L (136-145); eGFR For African Americans > 60 (> 60); eGFR For Non-African Americans > 60 (> 60)
[2020-07-13] MEDS ORDERED: *HR* Dextrose 50 % in Water (Vial) 50 ML VIAL IVP SCH (18:00)
[2020-07-13] MEDS ORDERED: Remdesivir 200 MG in 0.9 % Sodium Chloride 100 ML IVPB ONE (18:00)
[2020-07-13 18:06] LABS: Alanine Aminotransferase 12 Units/L (7-52); Albumin 3.1 g/dL (3.5-5.7); Albumin/Globulin Ratio 0.8 (1.1-2.2); Alkaline Phosphatase 74 Units/L (34-104); Aspartate Amino Transferase 15 Units/L (13-39); Bilirubin,Indirect 0.3 mg/dL (0.0-1.0); Bilirubin,Total 0.3 mg/dL (0.3-1.0); Total Protein 7.1 g/dL (6.4-8.9)
[2020-07-14] MEDS ORDERED: Azithromycin 500 MG in 0.9 % Sodium Chloride 250 ML IVPB SCH
[2020-07-14] MEDS: Piperacillin/Tazobactam 3.375 GM in 0.9 % Sodium Chloride Mini Bag 100 ML IVPB SCH ×3 (00:29→18:01)
[2020-07-14] MEDS: *HR* Heparin 5,000 UNIT/ML VIAL SQ SCH (05:08)
[2020-07-14 05:10] LABS: Hematocrit 39.7 % (37.5-50.1); Mean Corpuscular HGB Conc 29.5 g/dL (31.6-35.5); Mean Corpuscular Volume 88.2 fL (83.0-100.0); Mean Platelet Volume 10.9 fL (9.4-12.4); Platelet Count 188 K/mcL (140-400); Red Cell Distribution Width 17.3 % (11.5-14.5)
[2020-07-14 05:11] LABS: Hemoglobin 11.7 g/dL (12.9-16.9)
[2020-07-14 05:14] LABS: Basophils % 0.5 %; Hemoglobin 11.8 g/dL (12.9-16.9); Lymphocytes # 0.9 K/mcL (0.6-4.6); Lymphocytes % 23.1 %; Mean Corpuscular HGB Conc 29.5 g/dL (31.6-35.5); Mean Corpuscular Hemoglobin 26.2 pg (28.0-33.3); Mean Corpuscular Volume 88.7 fL (83.0-100.0); Mean Platelet Volume 10.6 fL (9.4-12.4); Monocytes # 0.2 K/mcL (0.0-1.3); Neutrophils # 2.8 K/mcL (1.6-8.9); Platelet Count 181 K/mcL (140-400); Red Blood Count 4.51 M/mcL (4.19-5.50); Red Cell Distribution Width 17.3 % (11.5-14.5); Segmented Neutrophils % 69.4 %
[2020-07-14 05:27] LABS: BUN/Creatinine Ratio 23 (6-26); Blood Urea Nitrogen 8 mg/dL (6-20); Calcium 8.5 mg/dL (8.6-10.3); Carbon Dioxide 28 mEq/L (23-29); Chloride 109 mEq/L (98-107); Glucose 82 mg/dL (70-105); Magnesium 1.6 mg/dL (1.6-2.6); Osmolality,Calculated 307 (280-300); Phosphorous 1.9 mg/dL (2.7-4.5); Potassium 2.9 mEq/L (3.5-5.1); Sodium 150 mEq/L (136-145); eGFR For African Americans > 60 (> 60); eGFR For Non-African Americans > 60 (> 60)
[2020-07-14 05:29] LABS: Alanine Aminotransferase 11 Units/L (7-52); Albumin/Globulin Ratio 0.8 (1.1-2.2); Alkaline Phosphatase 72 Units/L (34-104); Aspartate Amino Transferase 10 Units/L (13-39); BUN/Creatinine Ratio 24 (6-26); Bilirubin,Total 0.2 mg/dL (0.3-1.0); Blood Urea Nitrogen 8 mg/dL (6-20); Calcium 8.5 mg/dL (8.6-10.3); Carbon Dioxide 27 mEq/L (23-29); Chloride 109 mEq/L (98-107); Globulin 3.6 g/dL (2.4-3.5); Glucose 83 mg/dL (70-105); Osmolality,Calculated 305 (280-300); Potassium 2.9 mEq/L (3.5-5.1); Sodium 149 mEq/L (136-145); Total Protein 6.6 g/dL (6.4-8.9); eGFR For African Americans > 60 (> 60); eGFR For Non-African Americans > 60 (> 60)
[2020-07-14 05:53] LABS: Reactive Lymphocytes Present (Not Present)
[2020-07-14 05:54] LABS: Platelet Estimate Normal (Normal)
[2020-07-14] MEDS: Pantoprazole 40 MG VIAL IVP SCH (08:08)
[2020-07-14] MEDS: Dexamethasone 4 MG/ML VIAL IVP SCH (08:09)
[2020-07-14] MEDS ORDERED: Potassium Phosphate 44 MEQ in 0.9 % Sodium Chloride 250 ML IVPB ONE (09:22)
[2020-07-14] MEDS: D5% in Water 1,000 ML IVC SCH (14:18)
[2020-07-14] MEDS: Remdesivir 100 MG in 0.9 % Sodium Chloride 100 ML IVPB SCH (16:21)
[2020-07-14] MEDS ORDERED: Piperacillin/Tazobactam 3.375 GM in 0.9 % Sodium Chloride Mini Bag 100 ML IVPB SCH (19:00)
[2020-07-14 19:10] LABS: BUN/Creatinine Ratio 23 (6-26); Blood Urea Nitrogen 10 mg/dL (6-20); Calcium 8.6 mg/dL (8.6-10.3); Carbon Dioxide 27 mEq/L (23-29); Chloride 108 mEq/L (98-107); Glucose 132 mg/dL (70-105); Osmolality,Calculated 309 (280-300); Potassium 4.6 mEq/L (3.5-5.1); Sodium 149 mEq/L (136-145); eGFR For African Americans > 60 (> 60); eGFR For Non-African Americans > 60 (> 60)
[2020-07-15] MEDS: Piperacillin/Tazobactam 3.375 GM in 0.9 % Sodium Chloride Mini Bag 100 ML IVPB SCH ×3 (03:31→22:00)
[2020-07-15] MEDS: D5% in Water 1,000 ML IVC SCH (04:04)
[2020-07-15] MEDS: *HR* Enoxaparin 40 MG/0.4 ML SYRINGE SQ SCH (06:06)
[2020-07-15 09:56] LABS: Hematocrit 38.9 % (37.5-50.1); Hemoglobin 11.6 g/dL (12.9-16.9); Mean Corpuscular HGB Conc 29.8 g/dL (31.6-35.5); Mean Corpuscular Hemoglobin 26.2 pg (28.0-33.3); Mean Corpuscular Volume 87.8 fL (83.0-100.0); Mean Platelet Volume 10.8 fL (9.4-12.4); Neutrophils # 3.2 K/mcL (1.6-8.9); Platelet Count 185 K/mcL (140-400); Red Blood Count 4.43 M/mcL (4.19-5.50); Red Cell Distribution Width 16.6 % (11.5-14.5); White Blood Count 5.3 K/mcL (4.3-11.1)
[2020-07-15 09:58] LABS: Lymphocytes # 1.7 K/mcL (0.6-4.6)
[2020-07-15 10:11] LABS: Alanine Aminotransferase 9 Units/L (7-52); Albumin 2.8 g/dL (3.5-5.7); Albumin/Globulin Ratio 0.8 (1.1-2.2); Alkaline Phosphatase 63 Units/L (34-104); Aspartate Amino Transferase 12 Units/L (13-39); BUN/Creatinine Ratio 25 (6-26); Bilirubin,Total 0.3 mg/dL (0.3-1.0); Blood Urea Nitrogen 10 mg/dL (6-20); Calcium 8.2 mg/dL (8.6-10.3); Carbon Dioxide 33 mEq/L (23-29); Chloride 103 mEq/L (98-107); Globulin 3.5 g/dL (2.4-3.5); Glucose 97 mg/dL (70-105); Osmolality,Calculated 295 (280-300); Potassium 2.8 mEq/L (3.5-5.1); Sodium 143 mEq/L (136-145); Total Protein 6.3 g/dL (6.4-8.9); eGFR For African Americans > 60 (> 60); eGFR For Non-African Americans > 60 (> 60)
[2020-07-15] MEDS: Dexamethasone 4 MG/ML VIAL IVP SCH (10:21)
[2020-07-15] MEDS: Pantoprazole 40 MG VIAL IVP SCH (10:22)
[2020-07-15 12:26] LABS: Hypochromasia Present (Not Present); Monocytes # 0.4 K/mcL (0.0-1.3); Platelet Estimate Normal (Normal)
[2020-07-15 12:27] LABS: Anisocytosis 1+ (Not Present); Reactive Lymphocytes Present (Not Present)
[2020-07-15] MEDS: Potassium Chloride Elixir 20 MEQ/15 ML UDC GTUBE SCH ×2 (14:47→21:58)
[2020-07-15 15:23] LABS: Phosphorous 2.7 mg/dL (2.7-4.5)
[2020-07-15] MEDS: BuPROPion XL (24 HR) 150 MG TABLET PO SCH (18:52)
[2020-07-15] MEDS: Remdesivir 100 MG in 0.9 % Sodium Chloride 100 ML IVPB SCH (19:30)
[2020-07-15 20:58] LABS: BUN/Creatinine Ratio 22 (6-26); Blood Urea Nitrogen 8 mg/dL (6-20); Calcium 8.3 mg/dL (8.6-10.3); Carbon Dioxide 33 mEq/L (23-29); Chloride 102 mEq/L (98-107); Glucose 128 mg/dL (70-105); Osmolality,Calculated 294 (280-300); Potassium 3.4 mEq/L (3.5-5.1); Sodium 142 mEq/L (136-145); eGFR For African Americans > 60 (> 60); eGFR For Non-African Americans > 60 (> 60)
[2020-07-15] MEDS ORDERED: Furosemide 20 MG/2 ML VIAL IVP ONE (21:14)
[2020-07-15] MEDS: Zinc Sulfate 220 MG CAPSULE PO SCH (21:58)
[2020-07-15] MEDS: diazePAM 5 MG TABLET PO SCH (21:58)
[2020-07-15] MEDS: Baclofen 10 MG TABLET PO SCH (21:59)
[2020-07-16 02:05] LABS: Basophils % 0.4 %; Eosinophils % 0.4 %; Hematocrit 41.5 % (37.5-50.1); Hemoglobin 12.5 g/dL (12.9-16.9); Immature Granulocytes % 0.8 % (0-4); Immature Platelets 7.2 % (1.1-6.1); Lymphocytes # 1.4 K/mcL (0.6-4.6); Lymphocytes % 28.5 %; Mean Corpuscular HGB Conc 30.1 g/dL (31.6-35.5); Mean Corpuscular Hemoglobin 25.9 pg (28.0-33.3); Mean Corpuscular Volume 85.9 fL (83.0-100.0); Monocytes # 0.3 K/mcL (0.0-1.3); Monocytes % 6.1 %; Neutrophils # 3.1 K/mcL (1.6-8.9); Platelet Count 156 K/mcL (140-400); Red Blood Count 4.83 M/mcL (4.19-5.50); Red Cell Distribution Width 16.3 % (11.5-14.5); Segmented Neutrophils % 63.8 %; White Blood Count 4.9 K/mcL (4.3-11.1)
[2020-07-16 02:14] LABS: Alanine Aminotransferase 11 Units/L (7-52); Albumin/Globulin Ratio 0.8 (1.1-2.2); Alkaline Phosphatase 66 Units/L (34-104); Aspartate Amino Transferase 15 Units/L (13-39); BUN/Creatinine Ratio 21 (6-26); Bilirubin,Total 0.3 mg/dL (0.3-1.0); Blood Urea Nitrogen 9 mg/dL (6-20); Calcium 8.4 mg/dL (8.6-10.3); Carbon Dioxide 30 mEq/L (23-29); Chloride 101 mEq/L (98-107); Globulin 3.9 g/dL (2.4-3.5); Glucose 133 mg/dL (70-105); Osmolality,Calculated 295 (280-300); Potassium 3.6 mEq/L (3.5-5.1); Sodium 142 mEq/L (136-145); Total Protein 6.9 g/dL (6.4-8.9); eGFR For African Americans > 60 (> 60); eGFR For Non-African Americans > 60 (> 60)
[2020-07-16 02:21] LABS: Platelet Estimate Normal (Normal)
[2020-07-16] MEDS: Piperacillin/Tazobactam 3.375 GM in 0.9 % Sodium Chloride Mini Bag 100 ML IVPB SCH ×3 (03:11→21:35)
[2020-07-16] MEDS: *HR* Enoxaparin 40 MG/0.4 ML SYRINGE SQ SCH (06:37)
[2020-07-16] MEDS ORDERED: Potassium Chloride Elixir 20 MEQ/15 ML UDC GTUBE ONE (07:12)
[2020-07-16] MEDS ORDERED: Furosemide 20 MG/2 ML VIAL IVP ONE (07:12)
[2020-07-16] MEDS: Pantoprazole 40 MG VIAL IVP SCH (11:07)
[2020-07-16] MEDS: Dexamethasone 4 MG/ML VIAL IVP SCH (11:07)
[2020-07-16] MEDS: Baclofen 10 MG TABLET PO SCH ×3 (11:10→20:09)
[2020-07-16] MEDS: BuPROPion XL (24 HR) 150 MG TABLET PO SCH (11:10)
[2020-07-16] MEDS: Zinc Sulfate 220 MG CAPSULE PO SCH ×2 (11:10→20:10)
[2020-07-16] MEDS: diazePAM 5 MG TABLET PO SCH ×3 (11:10→20:10)
[2020-07-16] MEDS: Potassium Chloride Elixir 20 MEQ/15 ML UDC GTUBE SCH ×3 (11:10→20:14)
[2020-07-16] MEDS: Benzonatate 100 MG CAPSULE PO SCH ×2 (15:59→20:10)
[2020-07-17 01:25] LABS: Alanine Aminotransferase 29 Units/L (7-52); Albumin 3.3 g/dL (3.5-5.7); Albumin/Globulin Ratio 0.8 (1.1-2.2); Alkaline Phosphatase 72 Units/L (34-104); Aspartate Amino Transferase 31 Units/L (13-39); BUN/Creatinine Ratio 19 (6-26); Bilirubin,Total 0.4 mg/dL (0.3-1.0); Blood Urea Nitrogen 8 mg/dL (6-20); Calcium 8.7 mg/dL (8.6-10.3); Carbon Dioxide 30 mEq/L (23-29); Chloride 95 mEq/L (98-107); Glucose 86 mg/dL (70-105); Osmolality,Calculated 278 (280-300); Potassium 4.6 mEq/L (3.5-5.1); Sodium 135 mEq/L (136-145); Total Protein 7.3 g/dL (6.4-8.9); eGFR For African Americans > 60 (> 60); eGFR For Non-African Americans > 60 (> 60)
[2020-07-17] MEDS: Remdesivir 100 MG in 0.9 % Sodium Chloride 100 ML IVPB SCH ×2 (02:35→17:53)
[2020-07-17] MEDS: Piperacillin/Tazobactam 3.375 GM in 0.9 % Sodium Chloride Mini Bag 100 ML IVPB SCH ×3 (03:48→19:38)
[2020-07-17] MEDS: *HR* Enoxaparin 40 MG/0.4 ML SYRINGE SQ SCH (05:03)
[2020-07-17 05:28] LABS: Basophils % 0.5 %; Eosinophils # 0.1 K/mcL (0.0-0.6); Eosinophils % 0.9 %; Hematocrit 40.9 % (37.5-50.1); Hemoglobin 12.4 g/dL (12.9-16.9); Immature Granulocytes % 0.7 % (0-4); Lymphocytes # 1.6 K/mcL (0.6-4.6); Mean Corpuscular HGB Conc 30.3 g/dL (31.6-35.5); Mean Corpuscular Hemoglobin 25.9 pg (28.0-33.3); Mean Corpuscular Volume 85.4 fL (83.0-100.0); Mean Platelet Volume 10.9 fL (9.4-12.4); Monocytes # 0.5 K/mcL (0.0-1.3); Monocytes % 8.1 %; Neutrophils # 3.6 K/mcL (1.6-8.9); Platelet Count 222 K/mcL (140-400); Red Blood Count 4.79 M/mcL (4.19-5.50); Segmented Neutrophils % 61.8 %; White Blood Count 5.8 K/mcL (4.3-11.1)
[2020-07-17] MEDS: Dexamethasone 4 MG/ML VIAL IVP SCH (10:17)
[2020-07-17] MEDS: Furosemide 40 MG/4 ML VIAL IVP SCH ×2 (10:18→19:39)
[2020-07-17] MEDS: Potassium Chloride Elixir 20 MEQ/15 ML UDC GTUBE SCH ×3 (10:19→19:39)
[2020-07-17] MEDS: Zinc Sulfate 220 MG CAPSULE PO SCH ×2 (10:19→19:39)
[2020-07-17] MEDS: Baclofen 10 MG TABLET PO SCH ×3 (10:19→19:39)
[2020-07-17] MEDS: Pantoprazole 40 MG VIAL IVP SCH (10:19)
[2020-07-17] MEDS: Benzonatate 100 MG CAPSULE PO SCH ×3 (10:19→19:39)
[2020-07-17] MEDS: diazePAM 5 MG TABLET PO SCH ×3 (10:19→19:39)
[2020-07-17] MEDS: BuPROPion XL (24 HR) 150 MG TABLET PO SCH (10:19)
[2020-07-18] MEDS: Piperacillin/Tazobactam 3.375 GM in 0.9 % Sodium Chloride Mini Bag 100 ML IVPB SCH ×2 (03:14→12:14)
[2020-07-18 04:22] LABS: Mean Corpuscular HGB Conc 30.6 g/dL (31.6-35.5); Mean Corpuscular Hemoglobin 26.1 pg (28.0-33.3); Mean Corpuscular Volume 85.3 fL (83.0-100.0); Mean Platelet Volume 11.1 fL (9.4-12.4); Platelet Count 282 K/mcL (140-400); Red Blood Count 5.51 M/mcL (4.19-5.50); White Blood Count 7.4 K/mcL (4.3-11.1)
[2020-07-18 04:23] LABS: Hemoglobin 14.4 g/dL (12.9-16.9)
[2020-07-18 04:34] LABS: BUN/Creatinine Ratio 28 (6-26); Blood Urea Nitrogen 15 mg/dL (6-20); Calcium 9.3 mg/dL (8.6-10.3); Carbon Dioxide 33 mEq/L (23-29); Chloride 94 mEq/L (98-107); Glucose 131 mg/dL (70-105); Magnesium 1.8 mg/dL (1.6-2.6); Osmolality,Calculated 289 (280-300); Sodium 138 mEq/L (136-145); eGFR For African Americans > 60 (> 60); eGFR For Non-African Americans > 60 (> 60)
[2020-07-18] MEDS: *HR* Enoxaparin 40 MG/0.4 ML SYRINGE SQ SCH (05:35)
[2020-07-18 07:15] VITALS: BP 121/80
[2020-07-18] MEDS: diazePAM 5 MG TABLET PO SCH ×2 (08:47→15:40)
[2020-07-18] MEDS: Zinc Sulfate 220 MG CAPSULE PO SCH (08:47)
[2020-07-18] MEDS: Benzonatate 100 MG CAPSULE PO SCH ×2 (08:47→15:39)
[2020-07-18] MEDS: Pantoprazole 40 MG VIAL IVP SCH (08:47)
[2020-07-18] MEDS: Furosemide 40 MG/4 ML VIAL IVP SCH (08:48)
[2020-07-18] MEDS: Potassium Chloride Elixir 20 MEQ/15 ML UDC GTUBE SCH ×2 (08:48→15:39)
[2020-07-18] MEDS: Baclofen 10 MG TABLET PO SCH ×2 (08:48→15:40)
[2020-07-18] MEDS: Dexamethasone 4 MG/ML VIAL IVP SCH (08:48)
[2020-07-18] MEDS: BuPROPion XL (24 HR) 150 MG TABLET PO SCH (08:48)
== END 2020-07-18 16:30 ==
LOC: CDU 19:09 → EMEROOARM 19:09 → CDU 07-13 03:57 → 2NENU 07-13 23:00
PROVIDERS: ADMIT Internal Medicine; ATTEND Internal Medicine

== ENCOUNTER 2020-08-12 18:09 | Inpatient (IN) ==
[2020-08-12] MEDS ORDERED: Piperacillin/Tazobactam 3.375 GM in 0.9 % Sodium Chloride Mini Bag 100 ML IVPB ONE (18:26)
[2020-08-12 18:35] LABS: Amorphous Sediment,Urine Few per hpf (None-Few); Bacteria,Urine Few per hpf (None-Few); Bilirubin,Urine Negative (Negative); Blood,Urine Negative (Negative); Clarity,Urine Ex.Turbid (Clear); Color,Urine Light-Orange (Yellow); Glucose,Urine (UA) Normal (Normal); Ketones,Urine Negative (Negative); Leukocyte Esterase,Urine Moderate (Negative); Mucus,Urine Few per lpf (None-Few); Nitrite,Urine Positive (Negative); Protein,Urine >=600 mg/dL (Neg-Trace); Specific Gravity,Urine 1.025 (1.010-1.025); Urobilinogen,Urine Normal (Normal); WBC,Urine 30-50 per hpf (0-3)
[2020-08-12] MEDS ORDERED: 0.9 % Sodium Chloride 1,000 ML IVC ONE (18:35)
[2020-08-12 19:37] LABS: Basophils # 0.1 K/mcL (0.0-0.2); Basophils % 0.5 %; Eosinophils # 0.2 K/mcL (0.0-0.6); Eosinophils % 1.5 %; Hematocrit 35.5 % (37.5-50.1); Hemoglobin 10.8 g/dL (12.9-16.9); Immature Granulocytes % 0.6 % (0-4); Lymphocytes # 1.3 K/mcL (0.6-4.6); Lymphocytes % 12.7 %; Mean Corpuscular HGB Conc 30.4 g/dL (31.6-35.5); Mean Corpuscular Hemoglobin 27.1 pg (28.0-33.3); Mean Corpuscular Volume 89.2 fL (83.0-100.0); Mean Platelet Volume 10.7 fL (9.4-12.4); Monocytes # 0.6 K/mcL (0.0-1.3); Monocytes % 5.5 %; Neutrophils # 8.3 K/mcL (1.6-8.9); Platelet Count 403 K/mcL (140-400); Red Blood Count 3.98 M/mcL (4.19-5.50); Red Cell Distribution Width 17.6 % (11.5-14.5); Segmented Neutrophils % 79.2 %; White Blood Count 10.4 K/mcL (4.3-11.1)
[2020-08-12] MEDS ORDERED: Piperacillin/Tazobactam 3.375 GM VIAL ONE (19:48)
[2020-08-12 19:56] LABS: Adenovirus Not Detected (Not Detect); Coronavirus 229E Not Detected (Not Detect); Coronavirus HKU1 Not Detected (Not Detect); Coronavirus NL63 Not Detected (Not Detect); Coronavirus OC43 Not Detected (Not Detect)
[2020-08-12 19:57] LABS: Bordetella Pertussis Not Detected (Not Detect); Chlamydophila pneumoniae Not Detected (Not Detect); Human Metapneumovirus Not Detected (Not Detect); Human Rhinovirus/Enterovirus Not Detected (Not Detect); Influenza A Subtype 2009 H1 Not Detected (Not Detect); Influenza B Not Detected (Not Detect); Mycoplasma pneumoniae Not Detected (Not Detect); Parainfluenza Virus 1 Not Detected (Not Detect); Parainfluenza Virus 2 Not Detected (Not Detect); Parainfluenza Virus 3 Not Detected (Not Detect); Parainfluenza Virus 4 Not Detected (Not Detect); Respiratory Syncytial Virus Not Detected (Not Detect); SARS-CoV-2 DETECTED (Not Detect)
[2020-08-12 20:03] LABS: Alanine Aminotransferase 9 Units/L (7-52); Albumin 3.1 g/dL (3.5-5.7); Albumin/Globulin Ratio 0.6 (1.1-2.2); Alkaline Phosphatase 103 Units/L (34-104); Aspartate Amino Transferase 13 Units/L (13-39); BUN/Creatinine Ratio 27 (6-26); Bilirubin,Total 0.2 mg/dL (0.3-1.0); Blood Urea Nitrogen 12 mg/dL (6-20); Calcium 8.9 mg/dL (8.6-10.3); Carbon Dioxide 28 mEq/L (23-29); Chloride 97 mEq/L (98-107); Globulin 4.8 g/dL (2.4-3.5); Glucose 86 mg/dL (70-105); Osmolality,Calculated 279 (280-300); Potassium 3.7 mEq/L (3.5-5.1); Sodium 135 mEq/L (136-145); Total Protein 7.9 g/dL (6.4-8.9); Troponin I 0.04 ng/mL (< 0.04); eGFR For African Americans > 60 (> 60); eGFR For Non-African Americans > 60 (> 60)
[2020-08-12] MEDS ORDERED: Naloxone 0.4 MG/ML INJ IVP PRN (21:20)
[2020-08-12] MEDS ORDERED: MOM Conc 10 ML UD.LIQ PO PRN (21:20)
[2020-08-12] MEDS ORDERED: Acetaminophen 325 MG TABLET PO PRN (21:20)
[2020-08-12] MEDS ORDERED: Ondansetron 4 MG/2 ML VIAL IVP PRN (21:20)
[2020-08-12] MEDS ORDERED: Isovue-370 500 ML BOTTLE IVP ONE (22:04)
[2020-08-13 00:47] LABS: Creatine Kinase 11 Units/L (30-223)
[2020-08-13 00:48] LABS: Troponin I < 0.03 ng/mL (< 0.04)
[2020-08-13] MEDS: *HR* Heparin 5,000 UNIT/ML VIAL SQ SCH ×4 (02:13→20:33)
[2020-08-13] MEDS ORDERED: Piperacillin/Tazobactam 3.375 GM in 0.9 % Sodium Chloride Mini Bag 100 ML IVPB SCH (02:33)
[2020-08-13] MEDS: Piperacillin/Tazobactam 3.375 GM in 0.9 % Sodium Chloride Mini Bag 100 ML IVPB SCH ×3 (04:13→20:08)
[2020-08-13 04:14] LABS: Hematocrit 34.3 % (37.5-50.1); Hemoglobin 10.2 g/dL (12.9-16.9); Mean Corpuscular HGB Conc 29.7 g/dL (31.6-35.5); Mean Corpuscular Hemoglobin 26.5 pg (28.0-33.3); Mean Corpuscular Volume 89.1 fL (83.0-100.0); Mean Platelet Volume 10.8 fL (9.4-12.4); Platelet Count 343 K/mcL (140-400); Red Blood Count 3.85 M/mcL (4.19-5.50); Red Cell Distribution Width 17.6 % (11.5-14.5)
[2020-08-13 04:54] LABS: BUN/Creatinine Ratio 31 (6-26); Blood Urea Nitrogen 11 mg/dL (6-20); C-Reactive Protein > 300 mg/L (Less than 10); Calcium 8.4 mg/dL (8.6-10.3); Carbon Dioxide 22 mEq/L (23-29); Chloride 100 mEq/L (98-107); Ferritin 376 ng/mL (20-250); Glucose 126 mg/dL (70-105); Lactate Dehydrogenase 127 Units/L (140-271); Osmolality,Calculated 283 (280-300); Potassium 3.8 mEq/L (3.5-5.1); Sodium 136 mEq/L (136-145); eGFR For African Americans > 60 (> 60); eGFR For Non-African Americans > 60 (> 60)
[2020-08-13] MEDS ORDERED: Acetaminophen/Butalbital/CaffeineTABLET PO PRN (15:41)
[2020-08-13] MEDS: Ipratropium/Albuterol Neb 3 ML IH SCH ×2 (16:43→23:00)
[2020-08-13] MEDS: Baclofen 10 MG TABLET PO SCH ×2 (18:39→23:42)
[2020-08-13] MEDS: Zinc Sulfate 220 MG CAPSULE PO SCH (23:42)
[2020-08-14] MEDS: Ipratropium/Albuterol Neb 3 ML IH SCH (04:08)
[2020-08-14 04:32] LABS: Basophils # 0.1 K/mcL (0.0-0.2); Basophils % 0.5 %; Eosinophils # 0.1 K/mcL (0.0-0.6); Eosinophils % 1.1 %; Hematocrit 36.2 % (37.5-50.1); Hemoglobin 10.7 g/dL (12.9-16.9); Immature Granulocytes % 0.9 % (0-4); Lymphocytes # 1.2 K/mcL (0.6-4.6); Lymphocytes % 11.9 %; Mean Corpuscular HGB Conc 29.6 g/dL (31.6-35.5); Mean Corpuscular Hemoglobin 26.2 pg (28.0-33.3); Mean Corpuscular Volume 88.5 fL (83.0-100.0); Monocytes # 0.6 K/mcL (0.0-1.3); Monocytes % 6.5 %; Neutrophils # 7.6 K/mcL (1.6-8.9); Platelet Count 375 K/mcL (140-400); Red Blood Count 4.09 M/mcL (4.19-5.50); Red Cell Distribution Width 17.7 % (11.5-14.5); Segmented Neutrophils % 79.1 %; White Blood Count 9.7 K/mcL (4.3-11.1)
[2020-08-14 04:46] LABS: BUN/Creatinine Ratio 25 (6-26); Blood Urea Nitrogen 13 mg/dL (6-20); Calcium 8.5 mg/dL (8.6-10.3); Carbon Dioxide 29 mEq/L (23-29); Chloride 99 mEq/L (98-107); Glucose 106 mg/dL (70-105); Osmolality,Calculated 283 (280-300); Potassium 3.2 mEq/L (3.5-5.1); Sodium 136 mEq/L (136-145); eGFR For African Americans > 60 (> 60); eGFR For Non-African Americans > 60 (> 60)
[2020-08-14] MEDS: Piperacillin/Tazobactam 3.375 GM in 0.9 % Sodium Chloride Mini Bag 100 ML IVPB SCH ×3 (05:08→19:43)
[2020-08-14] MEDS: *HR* Heparin 5,000 UNIT/ML VIAL SQ SCH ×3 (05:09→19:43)
[2020-08-14] MEDS: BuPROPion XL (24 HR) 150 MG TABLET PO SCH ×2 (07:41→10:39)
[2020-08-14] MEDS ORDERED: Isovue-300 50ML VIAL ONE (07:48)
[2020-08-14] MEDS ORDERED: *HR* Propofol 200 MG/20 ML VIAL IVP ONE (08:36)
[2020-08-14] MEDS ORDERED: Lidocaine -MPF 2% 2 ML VIAL ONE (08:36)
[2020-08-14] MEDS ORDERED: *HR* FentaNYL (PF) 100 MCG/2 ML VIAL ONE (08:36)
[2020-08-14] MEDS ORDERED: Ondansetron 4 MG/2 ML VIAL ONE (09:40)
[2020-08-14] MEDS ORDERED: Ipratropium 1 PUFF INHALER IH SCH (10:00)
[2020-08-14] MEDS: Baclofen 10 MG TABLET PO SCH ×3 (11:52→23:51)
[2020-08-14] MEDS: Zinc Sulfate 220 MG CAPSULE PO SCH ×2 (11:52→23:51)
[2020-08-14] MEDS ORDERED: Lactobacillus 1 EACH CAP.SPRINK PO SCH (12:00)
[2020-08-14] MEDS ORDERED: Ascorbic Acid 500 MG TABLET PO SCH (12:00)
[2020-08-14] MEDS ORDERED: Multivit/Ca/Min/Fe/FA 1 TAB TABLET PO SCH (12:00)
[2020-08-14] MEDS ORDERED: Acetaminophen/Butalbital/CaffeineTABLET PO PRN (13:04)
[2020-08-14] MEDS ORDERED: Naloxone 0.4 MG/ML INJ IVP PRN (13:04)
[2020-08-14] MEDS ORDERED: Acetaminophen 325 MG TABLET PO PRN (13:04)
[2020-08-14] MEDS ORDERED: MOM Conc 10 ML UD.LIQ PO PRN (13:04)
[2020-08-14] MEDS ORDERED: Albuterol 2.5 MG/3 ML NEBULIZER IH PRN (13:04)
[2020-08-14] MEDS ORDERED: Ondansetron 4 MG/2 ML VIAL IVP PRN (13:04)
[2020-08-14] MEDS: Ipratropium 1 PUFF INHALER IH SCH ×2 (16:11→22:11)
[2020-08-15] MEDS: Piperacillin/Tazobactam 3.375 GM in 0.9 % Sodium Chloride Mini Bag 100 ML IVPB SCH ×2 (03:12→10:28)
[2020-08-15] MEDS: Ipratropium 1 PUFF INHALER IH SCH ×4 (03:44→22:01)
[2020-08-15] MEDS: *HR* Heparin 5,000 UNIT/ML VIAL SQ SCH ×3 (05:40→20:55)
[2020-08-15 06:12] LABS: Basophils % 0.9 %; Eosinophils # 0.1 K/mcL (0.0-0.6); Eosinophils % 2.2 %; Hematocrit 33.5 % (37.5-50.1); Immature Granulocytes % 0.7 % (0-4); Lymphocytes # 1.2 K/mcL (0.6-4.6); Lymphocytes % 25.8 %; Mean Corpuscular HGB Conc 29.9 g/dL (31.6-35.5); Mean Corpuscular Hemoglobin 26.7 pg (28.0-33.3); Mean Corpuscular Volume 89.3 fL (83.0-100.0); Mean Platelet Volume 10.5 fL (9.4-12.4); Monocytes # 0.4 K/mcL (0.0-1.3); Neutrophils # 2.8 K/mcL (1.6-8.9); Platelet Count 338 K/mcL (140-400); Red Blood Count 3.75 M/mcL (4.19-5.50); Red Cell Distribution Width 17.8 % (11.5-14.5); Segmented Neutrophils % 61.4 %
[2020-08-15 06:14] LABS: White Blood Count 4.6 K/mcL (4.3-11.1)
[2020-08-15 06:33] LABS: BUN/Creatinine Ratio 17 (6-26); Blood Urea Nitrogen 8 mg/dL (6-20); Calcium 8.3 mg/dL (8.6-10.3); Carbon Dioxide 28 mEq/L (23-29); Chloride 99 mEq/L (98-107); Glucose 98 mg/dL (70-105); Osmolality,Calculated 282 (280-300); Potassium 3.2 mEq/L (3.5-5.1); Sodium 137 mEq/L (136-145); eGFR For African Americans > 60 (> 60); eGFR For Non-African Americans > 60 (> 60)
[2020-08-15] MEDS: BuPROPion XL (24 HR) 150 MG TABLET PO SCH (07:54)
[2020-08-15] MEDS ORDERED: Ergocalciferol (VIT D2) 50,000 UNIT (1.25MG) CAP PO SCH ×2 (09:00)
[2020-08-15] MEDS: Lactobacillus 1 EACH CAP.SPRINK PO SCH (10:29)
[2020-08-15] MEDS: Zinc Sulfate 220 MG CAPSULE PO SCH ×2 (10:29→22:32)
[2020-08-15] MEDS: Multivit/Ca/Min/Fe/FA 1 TAB TABLET PO SCH (10:29)
[2020-08-15] MEDS: Baclofen 10 MG TABLET PO SCH ×3 (10:29→22:32)
[2020-08-15] MEDS: Ascorbic Acid 500 MG TABLET PO SCH (10:30)
[2020-08-15] MEDS: Sulfamethoxazole/Trimeth DS 1 EACH TABLET PO SCH (20:55)
[2020-08-16 01:54] LABS: Basophils % 0.6 %; Eosinophils # 0.1 K/mcL (0.0-0.6); Eosinophils % 2.1 %; Hematocrit 32.2 % (37.5-50.1); Hemoglobin 9.4 g/dL (12.9-16.9); Immature Granulocytes % 1.5 % (0-4); Lymphocytes # 1.7 K/mcL (0.6-4.6); Lymphocytes % 35.4 %; Mean Corpuscular HGB Conc 29.2 g/dL (31.6-35.5); Mean Corpuscular Hemoglobin 25.8 pg (28.0-33.3); Mean Corpuscular Volume 88.2 fL (83.0-100.0); Mean Platelet Volume 10.6 fL (9.4-12.4); Monocytes # 0.3 K/mcL (0.0-1.3); Monocytes % 6.2 %; Platelet Count 373 K/mcL (140-400); Red Blood Count 3.65 M/mcL (4.19-5.50); Red Cell Distribution Width 17.9 % (11.5-14.5); Segmented Neutrophils % 54.2 %; White Blood Count 4.7 K/mcL (4.3-11.1)
[2020-08-16 02:02] LABS: Neutrophils # 2.6 K/mcL (1.6-8.9)
[2020-08-16 02:14] LABS: BUN/Creatinine Ratio 21 (6-26); Blood Urea Nitrogen 8 mg/dL (6-20); Calcium 8.2 mg/dL (8.6-10.3); Carbon Dioxide 24 mEq/L (23-29); Chloride 103 mEq/L (98-107); Glucose 107 mg/dL (70-105); Osmolality,Calculated 283 (280-300); Potassium 3.2 mEq/L (3.5-5.1); Sodium 137 mEq/L (136-145); eGFR For African Americans > 60 (> 60); eGFR For Non-African Americans > 60 (> 60)
[2020-08-16 02:30] LABS: Anisocytosis 1+ (Not Present); Platelet Estimate Normal (Normal)
[2020-08-16] MEDS: Ipratropium 1 PUFF INHALER IH SCH ×3 (03:52→15:54)
[2020-08-16] MEDS: *HR* Heparin 5,000 UNIT/ML VIAL SQ SCH ×3 (04:29→22:36)
[2020-08-16] MEDS ORDERED: Sodium Phosphate 30 MMOL in D5% in Water 100 ML IVPB ONE (07:32)
[2020-08-16] MEDS: Sulfamethoxazole/Trimeth DS 1 EACH TABLET PO SCH ×2 (08:35→22:37)
[2020-08-16] MEDS: BuPROPion XL (24 HR) 150 MG TABLET PO SCH (08:37)
[2020-08-16] MEDS: Lactobacillus 1 EACH CAP.SPRINK PO SCH (12:55)
[2020-08-16] MEDS: Baclofen 10 MG TABLET PO SCH (12:55)
[2020-08-16] MEDS: Ascorbic Acid 500 MG TABLET PO SCH (12:56)
[2020-08-16] MEDS: Zinc Sulfate 220 MG CAPSULE PO SCH (12:57)
[2020-08-16] MEDS: Multivit/Ca/Min/Fe/FA 1 TAB TABLET PO SCH (12:57)
[2020-08-16] MEDS ORDERED: Acetaminophen/Butalbital/CaffeineTABLET PO PRN (21:24)
[2020-08-16] MEDS ORDERED: Ipratropium 1 PUFF INHALER IH PRN (21:24)
[2020-08-16] MEDS ORDERED: Albuterol 2.5 MG/3 ML NEBULIZER IH PRN (21:24)
[2020-08-16] MEDS: Metoclopramide 10 MG/10 ML UD.LIQ PO SCH (22:37)
[2020-08-17] MEDS: *HR* Heparin 5,000 UNIT/ML VIAL SQ SCH ×2 (06:09→13:53)
[2020-08-17] MEDS: Metoclopramide 10 MG/10 ML UD.LIQ PO SCH ×2 (06:09→13:53)
[2020-08-17 07:25] LABS: BUN/Creatinine Ratio 15 (6-26); Blood Urea Nitrogen 8 mg/dL (6-20); Calcium 8.8 mg/dL (8.6-10.3); Carbon Dioxide 28 mEq/L (23-29); Chloride 102 mEq/L (98-107); Glucose 118 mg/dL (70-105); Osmolality,Calculated 283 (280-300); Potassium 4.1 mEq/L (3.5-5.1); Sodium 137 mEq/L (136-145); eGFR For African Americans > 60 (> 60); eGFR For Non-African Americans > 60 (> 60)
[2020-08-17] MEDS ORDERED: BuPROPion XL (24 HR) 150 MG TABLET PO SCH (09:00)
[2020-08-17] MEDS: Baclofen 10 MG TABLET PO SCH ×2 (09:02→13:52)
[2020-08-17] MEDS: Sulfamethoxazole/Trimeth DS 1 EACH TABLET PO SCH (09:02)
[2020-08-17 11:48] VITALS: BP 136/79
== END 2020-08-17 16:20 | DRG 853 ==
LOC: EMEROOARM 18:09 → CDU 18:09 → SUATTDRO 21:53 → CDU 08-13 00:41 → 2NENU 08-13 13:07 → 2NNU 08-13 18:35 → 3BNU 08-16 16:20
PROVIDERS: ADMIT Student in an Organized Health Care Education/Training Program; ATTEND Student in an Organized Health Care Education/Training Program

== ENCOUNTER 2021-11-07 20:03 | Inpatient (IN) ==
[2021-11-08] MEDS ORDERED: Ondansetron 4 MG/2 ML VIAL IVP ONE (00:41)
[2021-11-08] MEDS ORDERED: Naloxone 0.4 MG/ML INJ IVP PRN (01:13)
[2021-11-08] MEDS ORDERED: Melatonin 3 MG TABLET PO PRN (01:13)
[2021-11-08] MEDS ORDERED: Acetaminophen 325 MG TABLET PO PRN ×2 (01:13→16:47)
[2021-11-08] MEDS ORDERED: 0.9 % Sodium Chloride 1,000 ML IVC ONE ×2 (01:16)
[2021-11-08] MEDS ORDERED: Ketorolac 30 MG/ML VIAL IVP PRN (01:58)
[2021-11-08] MEDS ORDERED: Magnesium Sulfate 1 GM/102 ML PIGGYBACK IVPB ONE (03:58)
[2021-11-08 05:12] LABS: Basophils % 0.2 %; Eosinophils # 0.2 K/mcL (0.0-0.6); Eosinophils % 1.5 %; Hematocrit 37.3 % (37.5-50.1); Hemoglobin 11.2 g/dL (12.9-16.9); Immature Granulocytes % 0.6 % (0-4); Lymphocytes # 0.9 K/mcL (0.6-4.6); Lymphocytes % 6.5 %; Mean Corpuscular Hemoglobin 25.7 pg (28.0-33.3); Mean Corpuscular Volume 85.6 fL (83.0-100.0); Mean Platelet Volume 10.6 fL (9.4-12.4); Monocytes # 0.5 K/mcL (0.0-1.3); Monocytes % 3.8 %; Platelet Count 181 K/mcL (140-400); Red Blood Count 4.36 M/mcL (4.19-5.50); Red Cell Distribution Width 16.7 % (11.5-14.5); Segmented Neutrophils % 87.4 %; White Blood Count 13.8 K/mcL (4.3-11.1)
[2021-11-08 05:19] LABS: Neutrophils # 12.1 K/mcL (1.6-8.9)
[2021-11-08 05:26] LABS: Alanine Aminotransferase 36 Units/L (7-52); Albumin 3.2 g/dL (3.5-5.7); Albumin/Globulin Ratio 0.8 (1.1-2.2); Alkaline Phosphatase 115 Units/L (34-104); Aspartate Amino Transferase 36 Units/L (13-39); BUN/Creatinine Ratio 22 (6-26); Bilirubin,Total 0.3 mg/dL (0.3-1.0); Blood Urea Nitrogen 10 mg/dL (6-20); Calcium 8.6 mg/dL (8.6-10.3); Carbon Dioxide 24 mEq/L (23-29); Chloride 107 mEq/L (98-107); Globulin 4.1 g/dL (2.4-3.5); Glucose 93 mg/dL (70-105); Magnesium 1.4 mg/dL (1.6-2.6); Osmolality,Calculated 287 (280-300); Phosphorous 2.3 mg/dL (2.7-4.5); Potassium 3.4 mEq/L (3.5-5.1); Sodium 139 mEq/L (136-145); Total Protein 7.3 g/dL (6.4-8.9); eGFR For African Americans > 60 (> 60); eGFR For Non-African Americans > 60 (> 60)
[2021-11-08 06:00] LABS: Platelet Estimate Normal (Normal)
[2021-11-08] MEDS: Piperacillin/Tazobactam 3.375 GM in 0.9 % Sodium Chloride Mini Bag 100 ML IVPB SCH ×3 (08:44→22:29)
[2021-11-08] MEDS ORDERED: polyethylene glycoL 3350 17 GM POWD.PACK PO PRN (16:47)
[2021-11-08] MEDS ORDERED: Acetaminophen/Butalbital/CaffeineTABLET PO PRN (16:47)
[2021-11-08] MEDS ORDERED: Albuterol 2.5 MG/3 ML NEBULIZER IH PRN (16:47)
[2021-11-08] MEDS: diazePAM 5 MG TABLET PO SCH ×2 (17:29→22:28)
[2021-11-08] MEDS: Baclofen 10 MG TABLET PO SCH ×2 (17:43→22:34)
[2021-11-08] MEDS: *HR* Heparin 5,000 UNIT/ML VIAL SQ SCH (17:43)
[2021-11-08] MEDS ORDERED: Melatonin 3 MG TABLET PO SCH (21:00)
[2021-11-09 06:00] LABS: Hematocrit 34.3 % (37.5-50.1); Hemoglobin 10.2 g/dL (12.9-16.9); Mean Corpuscular HGB Conc 29.7 g/dL (31.6-35.5); Mean Corpuscular Hemoglobin 25.3 pg (28.0-33.3); Mean Corpuscular Volume 85.1 fL (83.0-100.0); Mean Platelet Volume 10.5 fL (9.4-12.4); Platelet Count 146 K/mcL (140-400); Red Blood Count 4.03 M/mcL (4.19-5.50); White Blood Count 8.3 K/mcL (4.3-11.1)
[2021-11-09] MEDS: *HR* Heparin 5,000 UNIT/ML VIAL SQ SCH ×2 (06:02→19:15)
[2021-11-09 06:13] LABS: BUN/Creatinine Ratio 20 (6-26); Blood Urea Nitrogen 11 mg/dL (6-20); Calcium 8.6 mg/dL (8.6-10.3); Carbon Dioxide 24 mEq/L (23-29); Chloride 103 mEq/L (98-107); Glucose 144 mg/dL (70-105); Magnesium 1.8 mg/dL (1.6-2.6); Osmolality,Calculated 286 (280-300); Phosphorous 2.2 mg/dL (2.7-4.5); Potassium 3.3 mEq/L (3.5-5.1); Sodium 137 mEq/L (136-145); eGFR For African Americans > 60 (> 60); eGFR For Non-African Americans > 60 (> 60)
[2021-11-09] MEDS ORDERED: Ringers Solution, Lactated 500 ML IVC ONE (08:18)
[2021-11-09] MEDS ORDERED: Sennosides/Docusate Sodium TABLET PO SCH (09:00)
[2021-11-09] MEDS ORDERED: Acetaminophen/Butalbital/CaffeineTABLET GTUBE PRN (09:27)
[2021-11-09] MEDS ORDERED: polyethylene glycoL 3350 17 GM POWD.PACK GTUBE PRN (09:27)
[2021-11-09] MEDS ORDERED: Melatonin 3 MG TABLET GTUBE PRN (09:27)
[2021-11-09] MEDS ORDERED: GuaiFENesin Liq 200 MG/10 ML UDC GTUBE PRN (09:30)
[2021-11-09] MEDS: Piperacillin/Tazobactam 3.375 GM in 0.9 % Sodium Chloride Mini Bag 100 ML IVPB SCH ×3 (10:52→23:50)
[2021-11-09] MEDS: Docusate Oral Soln 100 MG/10 ML UDC GTUBE SCH (10:54)
[2021-11-09] MEDS: diazePAM 5 MG TABLET PO SCH ×3 (10:54→21:02)
[2021-11-09] MEDS: Baclofen 10 MG TABLET GTUBE SCH ×3 (10:54→21:01)
[2021-11-09] MEDS: Metoclopramide 10 MG/10 ML UD.LIQ GTUBE SCH ×4 (10:54→21:01)
[2021-11-09] MEDS ORDERED: Potassium Phosphate 44 MEQ in 0.9 % Sodium Chloride 250 ML IVPB ONE (10:59)
[2021-11-09] MEDS ORDERED: 0.9 % Sodium Chloride 500 ML ONE (11:06)
[2021-11-09] MEDS ORDERED: Isovue-300 50ML VIAL IVP ONE (11:51)
[2021-11-09] MEDS: Melatonin 3 MG TABLET GTUBE SCH (21:01)
[2021-11-10 01:36] LABS: BUN/Creatinine Ratio 15 (6-26); Blood Urea Nitrogen 7 mg/dL (6-20); Calcium 8.4 mg/dL (8.6-10.3); Carbon Dioxide 24 mEq/L (23-29); Chloride 104 mEq/L (98-107); Glucose 121 mg/dL (70-105); Magnesium 1.5 mg/dL (1.6-2.6); Osmolality,Calculated 281 (280-300); Phosphorous 2.6 mg/dL (2.7-4.5); Potassium 3.4 mEq/L (3.5-5.1); Sodium 136 mEq/L (136-145); eGFR For African Americans > 60 (> 60); eGFR For Non-African Americans > 60 (> 60)
[2021-11-10] MEDS: *HR* Heparin 5,000 UNIT/ML VIAL SQ SCH ×2 (05:30→17:12)
[2021-11-10] MEDS ORDERED: Potassium Phosphate 44 MEQ in 0.9 % Sodium Chloride 250 ML IVPB ONE (08:05)
[2021-11-10] MEDS: Docusate Oral Soln 100 MG/10 ML UDC GTUBE SCH (08:53)
[2021-11-10] MEDS: Baclofen 10 MG TABLET GTUBE SCH ×3 (08:54→20:18)
[2021-11-10] MEDS: diazePAM 5 MG TABLET PO SCH ×3 (08:54→20:18)
[2021-11-10] MEDS: Piperacillin/Tazobactam 3.375 GM in 0.9 % Sodium Chloride Mini Bag 100 ML IVPB SCH ×2 (08:58→16:17)
[2021-11-10] MEDS: Metoclopramide 10 MG/10 ML UD.LIQ GTUBE SCH ×4 (11:16→20:19)
[2021-11-10] MEDS: Melatonin 3 MG TABLET GTUBE SCH (20:19)
[2021-11-11] MEDS: Piperacillin/Tazobactam 3.375 GM in 0.9 % Sodium Chloride Mini Bag 100 ML IVPB SCH ×4 (00:21→23:39)
[2021-11-11 05:08] LABS: Hematocrit 30.5 % (37.5-50.1); Mean Corpuscular HGB Conc 29.5 g/dL (31.6-35.5); Mean Corpuscular Hemoglobin 25.4 pg (28.0-33.3); Mean Corpuscular Volume 85.9 fL (83.0-100.0); Mean Platelet Volume 10.8 fL (9.4-12.4); Platelet Count 160 K/mcL (140-400); Red Blood Count 3.55 M/mcL (4.19-5.50); Red Cell Distribution Width 16.8 % (11.5-14.5); White Blood Count 4.5 K/mcL (4.3-11.1)
[2021-11-11 05:25] LABS: BUN/Creatinine Ratio 12 (6-26); Blood Urea Nitrogen 6 mg/dL (6-20); Calcium 8.8 mg/dL (8.6-10.3); Carbon Dioxide 26 mEq/L (23-29); Chloride 101 mEq/L (98-107); Glucose 89 mg/dL (70-105); Magnesium 1.8 mg/dL (1.6-2.6); Osmolality,Calculated 279 (280-300); Phosphorous 3.9 mg/dL (2.7-4.5); Potassium 3.7 mEq/L (3.5-5.1); Sodium 136 mEq/L (136-145); eGFR For African Americans > 60 (> 60); eGFR For Non-African Americans > 60 (> 60)
[2021-11-11] MEDS: *HR* Heparin 5,000 UNIT/ML VIAL SQ SCH ×2 (05:50→18:05)
[2021-11-11] MEDS ORDERED: *HR* Propofol 200 MG/20 ML VIAL IVP ONE (08:49)
[2021-11-11] MEDS ORDERED: *HR* FentaNYL (PF) 100 MCG/2 ML VIAL ONE (08:49)
[2021-11-11] MEDS ORDERED: *HR* Midazolam HCl 2 MG/2 ML VIAL ONE (08:49)
[2021-11-11] MEDS ORDERED: Ipratropium/Albuterol Neb 3 ML ONE (09:12)
[2021-11-11] MEDS ORDERED: Ketamine HCL *QUVA* 50mg (1mL) SYRINGE ONE (09:31)
[2021-11-11] MEDS ORDERED: Acetaminophen IV 1,000 MG/100 ML BAG IVPB ONE (10:30)
[2021-11-11] MEDS: Docusate Oral Soln 100 MG/10 ML UDC GTUBE SCH (11:38)
[2021-11-11] MEDS: Metoclopramide 10 MG/10 ML UD.LIQ GTUBE SCH ×4 (11:38→20:19)
[2021-11-11] MEDS: Baclofen 10 MG TABLET GTUBE SCH ×3 (11:38→20:20)
[2021-11-11] MEDS: diazePAM 5 MG TABLET PO SCH ×3 (11:39→20:20)
[2021-11-11] MEDS: Melatonin 3 MG TABLET GTUBE SCH (20:20)
[2021-11-12 02:05] LABS: Appearance of Body Fluid Cloudy (Clear); Volume of Body Fluid 23 mL
[2021-11-12 02:28] LABS: Appearance of Body Fluid Cloudy (Clear); Volume of Body Fluid 10 mL
[2021-11-12 03:16] LABS: Hematocrit 30.3 % (37.5-50.1); Hemoglobin 9.1 g/dL (12.9-16.9); Immature Platelets 13.2 % (1.1-6.1); Mean Corpuscular Hemoglobin 25.9 pg (28.0-33.3); Mean Corpuscular Volume 86.3 fL (83.0-100.0); Mean Platelet Volume 12.4 fL (9.4-12.4); Red Blood Count 3.51 M/mcL (4.19-5.50); Red Cell Distribution Width 16.9 % (11.5-14.5); White Blood Count 3.7 K/mcL (4.3-11.1)
[2021-11-12 04:00] LABS: BUN/Creatinine Ratio 16 (6-26); Blood Urea Nitrogen 10 mg/dL (6-20); Calcium 8.5 mg/dL (8.6-10.3); Carbon Dioxide 21 mEq/L (23-29); Chloride 104 mEq/L (98-107); Glucose 109 mg/dL (70-105); Osmolality,Calculated 284 (280-300); Potassium 3.7 mEq/L (3.5-5.1); Sodium 137 mEq/L (136-145); eGFR For African Americans > 60 (> 60); eGFR For Non-African Americans > 60 (> 60)
[2021-11-12] MEDS: *HR* Heparin 5,000 UNIT/ML VIAL SQ SCH ×2 (05:20→17:36)
[2021-11-12] MEDS: Piperacillin/Tazobactam 3.375 GM in 0.9 % Sodium Chloride Mini Bag 100 ML IVPB SCH ×3 (07:36→23:37)
[2021-11-12] MEDS: Docusate Oral Soln 100 MG/10 ML UDC GTUBE SCH (09:20)
[2021-11-12] MEDS: Baclofen 10 MG TABLET GTUBE SCH ×3 (09:20→21:20)
[2021-11-12] MEDS: Metoclopramide 10 MG/10 ML UD.LIQ GTUBE SCH ×4 (09:20→21:20)
[2021-11-12] MEDS: diazePAM 5 MG TABLET PO SCH ×3 (09:21→21:19)
[2021-11-12] MEDS: Melatonin 3 MG TABLET GTUBE SCH (21:20)
[2021-11-13 04:40] LABS: Hematocrit 29.3 % (37.5-50.1); Hemoglobin 8.8 g/dL (12.9-16.9); Mean Corpuscular Hemoglobin 25.7 pg (28.0-33.3); Mean Corpuscular Volume 85.7 fL (83.0-100.0); Mean Platelet Volume 10.3 fL (9.4-12.4); Platelet Count 219 K/mcL (140-400); Red Blood Count 3.42 M/mcL (4.19-5.50); Red Cell Distribution Width 16.9 % (11.5-14.5); White Blood Count 5.4 K/mcL (4.3-11.1)
[2021-11-13] MEDS: *HR* Heparin 5,000 UNIT/ML VIAL SQ SCH ×2 (05:00→18:09)
[2021-11-13 05:07] LABS: BUN/Creatinine Ratio 13 (6-26); Blood Urea Nitrogen 15 mg/dL (6-20); Calcium 8.7 mg/dL (8.6-10.3); Carbon Dioxide 26 mEq/L (23-29); Chloride 104 mEq/L (98-107); Glucose 128 mg/dL (70-105); Osmolality,Calculated 292 (280-300); Phosphorous 3.8 mg/dL (2.7-4.5); Potassium 3.7 mEq/L (3.5-5.1); Sodium 140 mEq/L (136-145); eGFR For African Americans > 60 (> 60); eGFR For Non-African Americans > 60 (> 60)
[2021-11-13] MEDS: Vancomycin 1,250 MG/262.5 ML IV.SOLN IVPB SCH (07:25)
[2021-11-13] MEDS: Piperacillin/Tazobactam 3.375 GM in 0.9 % Sodium Chloride Mini Bag 100 ML IVPB SCH ×2 (08:53→16:02)
[2021-11-13] MEDS: Metoclopramide 10 MG/10 ML UD.LIQ GTUBE SCH ×4 (08:54→21:44)
[2021-11-13] MEDS: Baclofen 10 MG TABLET GTUBE SCH ×3 (08:55→21:46)
[2021-11-13] MEDS: Docusate Oral Soln 100 MG/10 ML UDC GTUBE SCH (08:55)
[2021-11-13] MEDS: diazePAM 5 MG TABLET PO SCH ×3 (08:55→21:45)
[2021-11-13] MEDS: Melatonin 3 MG TABLET GTUBE SCH (21:45)
[2021-11-14] MEDS: Piperacillin/Tazobactam 3.375 GM in 0.9 % Sodium Chloride Mini Bag 100 ML IVPB SCH ×3 (06:22→20:15)
[2021-11-14] MEDS: *HR* Heparin 5,000 UNIT/ML VIAL SQ SCH ×2 (06:23→17:10)
[2021-11-14 07:35] LABS: BUN/Creatinine Ratio 13 (6-26); Blood Urea Nitrogen 14 mg/dL (6-20); Calcium 9.1 mg/dL (8.6-10.3); Carbon Dioxide 30 mEq/L (23-29); Chloride 101 mEq/L (98-107); Glucose 114 mg/dL (70-105); Osmolality,Calculated 287 (280-300); Potassium 4.2 mEq/L (3.5-5.1); Sodium 138 mEq/L (136-145); Vancomycin,Trough 17 mcg/mL (5-10); eGFR For African Americans > 60 (> 60); eGFR For Non-African Americans > 60 (> 60)
[2021-11-14 08:14] LABS: Hematocrit 32.2 % (37.5-50.1); Hemoglobin 9.8 g/dL (12.9-16.9); Mean Corpuscular HGB Conc 30.4 g/dL (31.6-35.5); Mean Corpuscular Hemoglobin 25.8 pg (28.0-33.3); Mean Corpuscular Volume 84.7 fL (83.0-100.0); Mean Platelet Volume 10.2 fL (9.4-12.4); Platelet Count 288 K/mcL (140-400); Red Cell Distribution Width 17.2 % (11.5-14.5); White Blood Count 4.7 K/mcL (4.3-11.1)
[2021-11-14] MEDS: Vancomycin 1,250 MG/262.5 ML IV.SOLN IVPB SCH (08:16)
[2021-11-14] MEDS: Metoclopramide 10 MG/10 ML UD.LIQ GTUBE SCH ×4 (08:17→22:29)
[2021-11-14] MEDS: Docusate Oral Soln 100 MG/10 ML UDC GTUBE SCH (08:17)
[2021-11-14] MEDS: Baclofen 10 MG TABLET GTUBE SCH ×3 (08:18→22:29)
[2021-11-14] MEDS: diazePAM 5 MG TABLET PO SCH ×3 (08:18→22:28)
[2021-11-14] MEDS: Melatonin 3 MG TABLET GTUBE SCH (22:28)
[2021-11-15] MEDS: *HR* Heparin 5,000 UNIT/ML VIAL SQ SCH (06:27)
[2021-11-15] MEDS: Piperacillin/Tazobactam 3.375 GM in 0.9 % Sodium Chloride Mini Bag 100 ML IVPB SCH (06:28)
[2021-11-15] MEDS: Vancomycin 1,250 MG/262.5 ML IV.SOLN IVPB SCH (06:49)
[2021-11-15 07:49] VITALS: O2SAT 94
[2021-11-15] MEDS ORDERED: levoFLOXacin 750 MG/150 ML 750 MG/150 ML BAG IVPB SCH (09:00)
[2021-11-15 09:08] LABS: Basophils % 0.7 %; Eosinophils # 0.4 K/mcL (0.0-0.6); Eosinophils % 6.4 %; Hematocrit 33.5 % (37.5-50.1); Hemoglobin 10.1 g/dL (12.9-16.9); Immature Granulocytes % 1.1 % (0-4); Lymphocytes # 1.4 K/mcL (0.6-4.6); Lymphocytes % 25.4 %; Mean Corpuscular HGB Conc 30.1 g/dL (31.6-35.5); Mean Corpuscular Hemoglobin 25.6 pg (28.0-33.3); Mean Corpuscular Volume 84.8 fL (83.0-100.0); Monocytes # 0.4 K/mcL (0.0-1.3); Monocytes % 7.7 %; Neutrophils # 3.3 K/mcL (1.6-8.9); Platelet Count 338 K/mcL (140-400); Red Blood Count 3.95 M/mcL (4.19-5.50); Red Cell Distribution Width 17.3 % (11.5-14.5); Segmented Neutrophils % 58.7 %; White Blood Count 5.6 K/mcL (4.3-11.1)
[2021-11-15] MEDS: Docusate Oral Soln 100 MG/10 ML UDC GTUBE SCH (09:10)
[2021-11-15] MEDS: Metoclopramide 10 MG/10 ML UD.LIQ GTUBE SCH ×2 (09:10→15:46)
[2021-11-15] MEDS: diazePAM 5 MG TABLET PO SCH ×2 (09:11→15:46)
[2021-11-15] MEDS: Baclofen 10 MG TABLET GTUBE SCH ×2 (09:11→15:46)
[2021-11-15 11:15] VITALS: BP 144/94; PULSE 86; TEMP 97.7
[2021-11-15 14:21] LABS: Adenovirus Not Detected (Not Detect); Bordetella Pertussis Not Detected (Not Detect); Chlamydophila pneumoniae Not Detected (Not Detect); Coronavirus 229E Not Detected (Not Detect); Coronavirus HKU1 Not Detected (Not Detect); Coronavirus NL63 Not Detected (Not Detect); Coronavirus OC43 Not Detected (Not Detect); Human Metapneumovirus Not Detected (Not Detect); Human Rhinovirus/Enterovirus DETECTED (Not Detect); Influenza A Subtype 2009 H1 Not Detected (Not Detect); Influenza B Not Detected (Not Detect); Mycoplasma pneumoniae Not Detected (Not Detect); Parainfluenza Virus 1 Not Detected (Not Detect); Parainfluenza Virus 2 Not Detected (Not Detect); Parainfluenza Virus 3 Not Detected (Not Detect); Parainfluenza Virus 4 Not Detected (Not Detect); Respiratory Syncytial Virus Not Detected (Not Detect); SARS-CoV-2 Not Detected (Not Detect)
== END 2021-11-15 18:17 | DRG 871 ==
LOC: 3ANU → SUATTDRO 11-08 00:02
PROVIDERS: ADMIT Internal Medicine; ATTEND Family Medicine